=== PATIENT | female | born 1975 | race Caucasian/White ===

== ENCOUNTER 2017-04-29 05:26 | Emergency (ER) | payer SELFPAY ==
[2017-04-29] MEDS ORDERED: Ondansetron 4 MG/2 ML SDV IVPUSH ONE (05:36)
[2017-04-29] MEDS ORDERED: Diltiazem 25 MG/5 ML SDV IVPUSH ONE (05:36)
[2017-04-29] MEDS ORDERED: Sodium Chloride 0.9% 1,000 ML IV ONE (05:36)
--- NOTE | 2017-04-29 05:38 | EDM.PDOC ---
ED HPI GENERAL MEDICAL PROBLEM - General Chief Complaint: Cardiovascular Problem Stated Complaint: RAPID HEART RATE Time Seen by Provider: 04/29/17 05:37 Source of Information: Reports: Patient - History of Present Illness INITIAL COMMENTS - FREE TEXT/NARRATIVE: HISTORY AND PHYSICAL: History of present illness: [Patient with anxiety and history of aortic stenosis with valve replacement presents with sinus tachycardia rate 140 no fever vomiting chills sweats no chest pain shortness breath headache dizziness palpitation no bowel or urine symptoms at current However, shortly after arrival patient did vomit and her heart rate converted to a normal sinus rhythm and rate in the 80s Patient does have history of SVT in the past she has been on Cardizem currently Dr. Montes De Oca in [place] has her taking metoprolol extended release tablets ] Review of systems: As per history of present illness and below otherwise all systems reviewed and negative. Past medical history: As per history of present illness and as reviewed below otherwise noncontributory. Surgical history: As per history of present illness and as reviewed below otherwise noncontributory. Social history: No reported history of drug or alcohol abuse. Family history: As per history of present illness and as reviewed below otherwise noncontributory. Physical exam: HEENT: Atraumatic, normocephalic, pupils reactive, negative for conjunctival pallor or scleral icterus, mucous membranes moist, throat clear, neck supple, nontender, trachea midline. Lungs: Clear to auscultation, breath sounds equal bilaterally, chest nontender. Heart: S1S2, regular, negative for clicks, rubs, or JVD. Abdomen: Soft, nondistended, nontender. Negative for masses or hepatosplenomegaly. Negative for costovertebral tenderness. Pelvis: Stable nontender. Genitourinary: Deferred. Rectal: Deferred. Extremities: Atraumatic, negative for cords or calf pain. Neurovascular unremarkable. Neuro: Awake, alert, oriented. Cranial nerves II through XII unremarkable. Cerebellum unremarkable. Motor and sensory unremarkable throughout. Exam nonfocal. Diagnostics: [CBC CMP troponin EKG Chest 1 view ] Therapeutics: [1 L normal saline bolus Cardizem 20 mg IV was ordered however not provided as patient had one episode of vomiting which converted her to a normal sinus rhythm Protonic saline milligrams IV ] Impression: [SVT converted to normal sinus rhythm] Definitive disposition and diagnosis as appropriate pending reevaluation and review of above. chest Pain Score (Numeric/FACES): 3 - Related Data Allergies Allergy/AdvReac Type Severity Reaction Status Date / Time No Known Allergies Allergy Verified 04/29/17 05:31 Home Meds: Home Meds Furosemide [Lasix] 40 mg PO DAILY 04/29/17 [History] LORazepam 1 tab PO BID PRN 04/29/17 [History] Nitroglycerin [Nitrostat] 1 tab SL ASDIRECTED PRN 04/29/17 [History] Promethazine [Phenergan] 1 tab PO Q6HR PRN 04/29/17 [History] Warfarin [Coumadin] 10 mg PO DAILY 04/29/17 [History] ED ROS GENERAL - Review of Systems Review Of Systems: ROS reveals no pertinent complaints other than HPI. ED EXAM, GENERAL - Physical Exam Exam: See Below Course - Vital Signs Last Recorded V/S: Last Vital Signs Temp 97.7 F 04/29/17 05:26 Pulse 101 H 04/29/17 05:44 Resp 16 04/29/17 05:44 BP 147/92 H 04/29/17 05:44 Pulse Ox 97 04/29/17 05:44 - Orders/Labs/Meds Orders: Active Orders 24 hr Category Date Time Status EKG Documentation Completion [RC] STAT Care 04/29/17 05:38 Active Chest 1V Frontal [CR] Stat Exams 04/29/17 05:38 Taken UA W/MICROSCOPIC [URIN] Stat Lab 04/29/17 05:36 Ordered Sodium Chloride 0.9% [Normal Saline] 1,000 ml Med 04/29/17 05:36 Active IV STAT Medication Orders Sodium Chloride (Normal Saline) 1,000 mls @ 999 mls/hr IV STAT ONE Stop: 04/29/17 06:36 Last Admin: 04/29/17 05:45 Dose: 999 mls/hr Labs: Laboratory Tests 04/29/17 04/29/17 04/29/17 Range/Units 05:48 05:48 05:48 WBC 6.23 (4.0-11.0) K/uL RBC 3.69 L (4.30-5.90) M/uL Hgb 8.5 L (12.0-16.0) g/dL Hct 27.4 L (36.0-46.0) % MCV 74.3 L (80.0-98.0) fL MCH 23.0 L (27.0-32.0) pg MCHC 31.0 (31.0-37.0) g/dL RDW Std Deviation 45.3 (28.0-62.0) fl RDW Coeff of Rd 17 H (11.0-15.0) % Plt Count 301 (150-400) K/uL MPV 9.20 (7.40-12.00) fL Neut % (Auto) 66.3 (48.0-80.0) % Lymph % (Auto) 23.9 (16.0-40.0) % [place] % (Auto) 7.4 (0.0-15.0) % Eos % (Auto) 1.6 (0.0-7.0) % Baso % (Auto) 0.8 (0.0-1.5) % Neut # (Auto) 4.1 (1.4-5.7) K/uL Lymph # (Auto) 1.5 (0.6-2.4) K/uL [place] # (Auto) 0.5 (0.0-0.8) K/uL Eos # (Auto) 0.1 (0.0-0.7) K/uL Baso # (Auto) 0.1 (0.0-0.1) K/uL Nucleated RBC % 0.0 /100WBC Nucleated RBCs # 0 K/uL INR 4.68 Sodium 134 L (136-146) mmol/L Potassium 3.6 (3.5-5.1) mmol/L Chloride 102 (98-110) mmol/L Carbon Dioxide 21 (21-31) mmol/L BUN 13 (6.0-23.0) mg/dL Creatinine 0.8 (0.6-1.5) mg/dL Est Cr Clr Drug Dosing TNP Estimated GFR (MDRD) > 60.0 ml/min Glucose 143 H (60-110) mg/dL Calcium 9.6 (8.8-10.8) mg/dL Total Bilirubin 0.4 (0.1-1.5) mg/dL AST 18 (5-40) IU/L ALT 14 (8-54) IU/L Alkaline Phosphatase 63 (40-150) Creatine Kinase 33 (9-236) IU/L CK-MB (CK-2) 0.5 (0-6.6) ng/ml Troponin I < 0.10 (0.0-0.29) NG/ML Total Protein 8.0 (6.0-8.0) g/dL Albumin 4.2 (3.5-5.0) g/dL Globulin 3.8 H (2.0-3.5) g/dL Albumin/Globulin Ratio 1.1 L (1.3-2.8) Amylase 47 (10-90) U/L Lipase 37 (7-80) U/L Meds: Medications Generic Name Dose Route Start Last Admin Trade Name Freq PRN Reason Stop Dose Admin Sodium Chloride 1,000 mls @ 999 mls/hr 04/29/17 05:36 04/29/17 05:45 Normal Saline IV 04/29/17 06:36 999 mls/hr STAT ONE Administration Discontinued Medications Generic Name Dose Route Start Last Admin Trade Name Freq PRN Reason Stop Dose Admin Diltiazem HCl 20 mg 04/29/17 05:36 04/29/17 05:52 Diltiazem IVPUSH 04/29/17 05:37 Not Given ONETIME ONE Ondansetron HCl 8 mg 04/29/17 05:36 04/29/17 05:52 Zofran IVPUSH 04/29/17 05:37 Not Given ONETIME ONE Departure - Departure Time of Disposition: 06:33 Disposition: Home, Self-Care 01 Condition: Good Clinical Impression: SVT (supraventricular tachycardia) Referrals: Jeffy Sandra MD [Primary Care Provider] - Forms: ED Department Discharge Additional Instructions: Continue current home medications Return if symptoms persist or worsen Follow-up with primary care in 2 weeks sooner as needed The following information is given to patients seen in the emergency department who are being discharged to home. This information is to outline your options for follow-up care. We provide all patients seen in our emergency department with a follow-up referral. The need for follow-up, as well as the timing and circumstances, are variable depending upon the specifics of your emergency department visit. If you don't have a primary care physician on staff, we will provide you with a referral. We always advise you to contact your personal physician following an emergency department visit to inform them of the circumstance of the visit and for follow-up with them and/or the need for any referrals to a consulting specialist. The emergency department will also refer you to a specialist when appropriate. This referral assures that you have the opportunity for follow-up care with a specialist. All of these measure are taken in an effort to provide you with optimal care, which includes your follow-up. Under all circumstances we always encourage you to contact your private physician who remains a resource for coordinating your care. When calling for follow-up care, please make the office aware that this follow-up is from your recent emergency room visit. If for any reason you are refused follow-up, please contact the [facility] emergency department at and asked to speak to the emergency department charge nurse. - My Orders Last 24 Hours: My Active Orders 04/29/17 05:36 UA W/MICROSCOPIC [URIN] Stat Sodium Chloride 0.9% [Normal Saline] 1,000 ml IV STAT 04/29/17 05:38 EKG Documentation Completion [RC] STAT Chest 1V Frontal [CR] Stat - Assessment/Plan Last 24 Hours: My Active Orders 04/29/17 05:36 UA W/MICROSCOPIC [URIN] Stat Sodium Chloride 0.9% [Normal Saline] 1,000 ml IV STAT 04/29/17 05:38 EKG Documentation Completion [RC] STAT Chest 1V Frontal [CR] Stat
[2017-04-29 06:18] LABS: CHLORIDE,CL 102 mmol/L (98-110); SODIUM,NA 134 mmol/L (136-146)
[2017-04-29] MEDS ORDERED: Pantoprazole 40 MG Vial IVPUSH ONE ×2 (06:43)
--- NOTE | 2017-04-29 16:23 | CR ---
EXAM DATE: 04/29/17 PATIENT'S AGE: 41 Patient: TEVIN BUSBY Facility: [place], [place] Site . Site : 1975 Study: XRay Chest [id number]/25/2018 6:20:23 AM Ordering Physician: Jeny Lam Final Report: INDICATION: Tachycardia COMPARISON: none TECHNIQUE: Portable AP erect chest performed at 6:15 a.m. FINDINGS: The lungs are clear. There is no evidence pneumothorax. There is mild cardiac enlargement. Patient status post prior midline sternotomy. There is a left- sided AICD. There is no evidence pleural fluid. IMPRESSION: Cardiomegaly but no evidence of CHF. Dictated by Riaz Spence MD @ Apr 29 2017 6:27AM (Electronic Signature) Report Signed by Proxy. COLER-GOLDWATER SPECIALTY HOSPITALAshok
== END 2017-04-29 07:12 | disposition home or self-care (01) ==
LOC: MW.ED 05:26
DX: I47.1 Supraventricular tachycardia (principal); Z79.01 Long term (current) use of anticoagulants; Z79.899 Other long term (current) drug therapy
CPT/HCPCS: 36415; 71045; 80053; 81001; 82150; 82550; 82553; 83690; 84484; 85025; 85610; 93005; 96361; 96374; 99285; C9113; J7040; 99284

== ENCOUNTER 2017-08-21 14:00 | Emergency (ER) | payer SELFPAY ==
[2017-08-21] MEDS ORDERED: Sodium Chloride 0.9% 2.5 ML Syringe FLUSH PRN ×2 (15:12→16:02)
[2017-08-21] MEDS ORDERED: Aspirin 81 MG Tab.Chew PO ONE (15:12)
[2017-08-21] MEDS ORDERED: Sodium Chloride 0.9% 10 ML Syringe FLUSH PRN ×2 (15:12→16:02)
--- NOTE | 2017-08-21 15:17 | EDM.PDOC ---
ED HPI GENERAL MEDICAL PROBLEM - General Chief Complaint: Respiratory Problem Stated Complaint: SHORTNESS OF BREATH Time Seen by Provider: 08/21/17 15:13 Source of Information: Reports: Patient History Limitations: Reports: No Limitations - History of Present Illness INITIAL COMMENTS - FREE TEXT/NARRATIVE: HISTORY AND PHYSICAL: []42-year-old female with concerns over shortness of breath upon exertion History of Present Illness: []History includes MD at 37 with heart surgery 42 Recently traveled to [place] for her father's and had shortness of breath headaches in the middle the night Shortness breath is worsened since returning back to [place] She does have a nonproductive cough No fevers chills No pain with urination Primary care physician is Dr. Sandra [employer] Designer is Dr. Montes De Oca She has significant history of anemia Review of Systems: As per history of present illness and below otherwise all systems reviewed and negative. Past medical history: As per history of present illness and as reviewed below otherwise noncontributory. Surgical history: As per history of present illness and as reviewed below otherwise noncontributory. Social history: No reported history of drug or alcohol abuse. Family history: As per history of present illness and as reviewed below otherwise noncontributory. Physical exam: Alert female answering questions in full sentences skin is "breathy" when speaking . HEENT: Atraumatic, normocehpalic, pupils reactive, negative for conjunctival pallor or scleral icterus, mucous membranes moist, throat clear, neck supple, nontender, trachea midline. Lungs: Clear to auscultation, breath sounds equal bilaterally, chest non tender. Shallow breath sounds Heart: S1S2, regular, negative for clicks, rubs, or JVD. Abdomen: Soft, nondistended, nontender. Negative for masses or hepatossplenmegaly. Negative for costovertebral tenderness. Pelvis: Stable nontender. Genitourinary: Deferred. Rectal: Deferred Extremities: Atraumatic, negative for cords or calf pain. Neurovascular unremarkable. Neuro: Awake, alert, oriented. Cranial nerves II through XII unremarkable. Cerebellum unremarkable. Motor and sensory unremarkable throughout. Exam nonfocal. EKG sinus rhythm at 79 bpm Chest x-ray with no sign of pneumonia or CHF Discussed with the patient and her that her hemoglobin is 6.1 and will need blood transfusion she is in agreement with this course of action. Diagnostics: []CBC CMP EKG amylase lipase troponin BNP Therapeutics: []Aspirin O2 per nasal cannula Impression: []Acute anemia CHF Plan: []Discharged from ER [place] for outpatient therapy transfusion Lasix 20 mg to be given after transfusion Definitive disposition and diagnosis as appropriate pending reevaluation and review of above. Onset: Gradual Duration: Day(s):, Getting Worse Location: Reports: Chest Quality: Reports: Ache Severity: Moderate Improves with: Reports: None Worsens with: Reports: None Associated Symptoms: Reports: Cough - Related Data Allergies Allergy/AdvReac Type Severity Reaction Status Date / Time No Known Allergies Allergy Verified 08/21/17 14:32 Home Meds: Home Meds Furosemide [Lasix] 40 mg PO DAILY 04/29/17 [History] LORazepam 1 tab PO BID PRN 04/29/17 [History] Nitroglycerin [Nitrostat] 1 tab SL ASDIRECTED PRN 04/29/17 [History] Promethazine [Phenergan] 1 tab PO Q6HR PRN 04/29/17 [History] Warfarin [Coumadin] 10 mg PO DAILY 04/29/17 [History] Aspirin 81 mg PO DAILY 08/21/17 [History] Magnesium Oxide [Magnesium] 400 mg PO DAILY 08/21/17 [History] Metoprolol Succinate 25 mg PO BID 08/21/17 [History] Pantoprazole Sodium 1 tab PO DAILY 08/21/17 [History] Potassium Chloride 1 tab PO DAILY 08/21/17 [History] Sertraline [Zoloft] 200 mg PO DAILY 08/21/17 [History] Past Medical History - Past Health History Medical/Surgical History: Denies Medical/Surgical History Cardiovascular History: Reports: 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, Pacemaker [employer] History: Reports: Hematologic History: Reports: Anemia, Iron Deficiency - Past Surgical History Cardiovascular Surgical History: Reports: Valve Replacement, Other (See Below) Other Cardiovascular Surgeries/Procedures: Open heart sx Female Surgical History: Reports: Tubal Ligation Social & Family History - Family History Family Medical History: Noncontributory - Tobacco Use Smoking Status *Q: Never Smoker - Caffeine Use Caffeine Use: Reports: Tea Caffeine Use Comment: 2 cups daily - Recreational Drug Use Recreational Drug Use: No ED ROS GENERAL - Review of Systems Review Of Systems: ROS reveals no pertinent complaints other than HPI. ED EXAM, GENERAL - Physical Exam Exam: See Below (See dictation) Course - Vital Signs Last Recorded V/S: Last Vital Signs Temp 36.3 C 08/21/17 14:29 Pulse 82 08/21/17 14:29 Resp 18 08/21/17 14:29 BP 132/69 08/21/17 14:29 Pulse Ox 100 08/21/17 14:29 - Orders/Labs/Meds Orders: Active Orders 24 hr Category Date Time Status Cardiac Monitoring [RC] . DIRECTED Care 08/21/17 15:12 Active EKG Documentation Completion [RC] STAT Care 08/21/17 15:12 Active Chest 1V Frontal [CR] Stat Exams 08/21/17 15:12 Taken RED BLOOD CELLS LP [BBK] Stat Lab 08/21/17 16:16 Received TYPE AND SCREEN [BBK] Stat Lab 08/21/17 16:16 Received UA W/MICROSCOPIC [URIN] Stat Lab 08/21/17 16:10 Ordered Sodium Chloride 0.9% [Saline Flush] Med 08/21/17 15:12 Active 10 ml FLUSH ASDIRECTED PRN Sodium Chloride 0.9% [Saline Flush] Med 08/21/17 16:02 Active 10 ml FLUSH ASDIRECTED PRN Sodium Chloride 0.9% [Saline Flush] Med 08/21/17 15:12 Active 2.5 ml FLUSH ASDIRECTED PRN Sodium Chloride 0.9% [Saline Flush] Med 08/21/17 16:02 Active 2.5 ml FLUSH ASDIRECTED PRN Peripheral IV Insertion Adult [OM.PC] Stat Ot 08/21/17 16:02 Ordered Saline Lock Insert [OM.PC] Stat Oth 08/21/17 15:12 Ordered Transfuse Red Blood Cells [COMM] Stat Ot 08/21/17 16:00 Ordered Medication Orders Sodium Chloride (Saline Flush) 10 ml FLUSH ASDIRECTED PRN PRN Reason: Keep Vein Open Sodium Chloride (Saline Flush) 2.5 ml FLUSH ASDIRECTED PRN PRN Reason: Keep Vein Open Sodium Chloride (Saline Flush) 10 ml FLUSH ASDIRECTED PRN PRN Reason: Keep Vein Open Sodium Chloride (Saline Flush) 2.5 ml FLUSH ASDIRECTED PRN PRN Reason: Keep Vein Open Labs: Laboratory Tests 08/21/17 08/21/1718 Range/Units 15:24 15:24 15:24 WBC 5.32 (4.0-11.0) K/uL RBC 3.20 L (4.30-5.90) M/uL Hgb 6.1 L (12.0-16.0) g/dL Hct 22.1 L (36.0-46.0) % MCV 69.1 L (80.0-98.0) fL MCH 19.1 L (27.0-32.0) pg MCHC 27.6 L (31.0-37.0) g/dL RDW Std Deviation 45.9 (28.0-62.0) fl RDW Coeff of Rd 18 H (11.0-15.0) % Plt Count 289 (150-400) K/uL MPV 9.10 (7.40-12.00) fL Neut % (Auto) 70.1 (48.0-80.0) % Lymph % (Auto) 18.4 (16.0-40.0) % [place] % (Auto) 8.1 (0.0-15.0) % Eos % (Auto) 2.8 (0.0-7.0) % Baso % (Auto) 0.6 (0.0-1.5) % Neut # (Auto) 3.7 (1.4-5.7) K/uL Lymph # (Auto) 1.0 (0.6-2.4) K/uL [place] # (Auto) 0.4 (0.0-0.8) K/uL Eos # (Auto) 0.2 (0.0-0.7) K/uL Baso # (Auto) 0.0 (0.0-0.1) K/uL Nucleated RBC % 0.4 /100WBC Nucleated RBCs # 0 K/uL Sodium 139 (136-145) mmol/L Potassium 4.0 (3.5-5.1) mmol/L Chloride 104 (98-107) mmol/L Carbon Dioxide 27.0 (21.0-32.0) mmol/L BUN 15 (7.0-18.0) mg/dL Creatinine 1.0 (0.6-1.0) mg/dL Est Cr Clr Drug Dosing 67.21 mL/min Estimated GFR (MDRD) > 60.0 ml/min Glucose 109 H (74-106) mg/dL Calcium 8.8 (8.5-10.1) mg/dL Total Bilirubin 0.5 (0.2-1.0) mg/dL AST 19 (15-37) IU/L ALT 20 (14-63) IU/L Alkaline Phosphatase 59 (46-116) U/L Troponin I < 0.050 (0.000-0.056) ng/mL B-Natriuretic Peptide 174 H (<100) PG/ML Total Protein 7.4 (6.4-8.2) g/dL Albumin 3.8 (3.4-5.0) g/dL Globulin 3.6 H (2.0-3.5) g/dL Albumin/Globulin Ratio 1.1 L (1.3-2.8) Amylase 35 (25-115) U/L Lipase 116 (73-393) U/L Urine Color Urine Appearance Urine pH (5.0-8.0) Ur Specific [place] (1.001-1.035) Urine Protein (NEGATIVE) mg/dL Urine Glucose (UA) (NEGATIVE) mg/dL Urine Ketones (NEGATIVE) mg/dL Urine Occult Blood (NEGATIVE) Urine Nitrite (NEGATIVE) Urine Bilirubin (NEGATIVE) Urine Urobilinogen (<2.0) EU/dL Ur Leukocyte Esterase (NEGATIVE) Urine RBC (0-2/HPF) Urine WBC (0-5/HPF) Ur Epithelial Cells (NONE-FEW) Urine Bacteria (NEGATIVE) 08/21/17 Range/Units 16:10 WBC (4.0-11.0) K/uL RBC (4.30-5.90) M/uL Hgb (12.0-16.0) g/dL Hct (36.0-46.0) % MCV (80.0-98.0) fL MCH (27.0-32.0) pg MCHC (31.0-37.0) g/dL RDW Std Deviation (28.0-62.0) fl RDW Coeff of Rd (11.0-15.0) % Plt Count (150-400) K/uL MPV (7.40-12.00) fL Neut % (Auto) (48.0-80.0) % Lymph % (Auto) (16.0-40.0) % [place] % (Auto) (0.0-15.0) % Eos % (Auto) (0.0-7.0) % Baso % (Auto) (0.0-1.5) % Neut # (Auto) (1.4-5.7) K/uL Lymph # (Auto) (0.6-2.4) K/uL [place] # (Auto) (0.0-0.8) K/uL Eos # (Auto) (0.0-0.7) K/uL Baso # (Auto) (0.0-0.1) K/uL Nucleated RBC % /100WBC Nucleated RBCs # K/uL Sodium (136-145) mmol/L Potassium (3.5-5.1) mmol/L Chloride (98-107) mmol/L Carbon Dioxide (21.0-32.0) mmol/L BUN (7.0-18.0) mg/dL Creatinine (0.6-1.0) mg/dL Est Cr Clr Drug Dosing mL/min Estimated GFR (MDRD) ml/min Glucose (74-106) mg/dL Calcium (8.5-10.1) mg/dL Total Bilirubin (0.2-1.0) mg/dL AST (15-37) IU/L ALT (14-63) IU/L Alkaline Phosphatase (46-116) U/L Troponin I (0.000-0.056) ng/mL B-Natriuretic Peptide (<100) PG/ML Total Protein (6.4-8.2) g/dL Albumin (3.4-5.0) g/dL Globulin (2.0-3.5) g/dL Albumin/Globulin Ratio (1.3-2.8) Amylase (25-115) U/L Lipase (73-393) U/L Urine Color YELLOW Urine Appearance CLEAR Urine pH 5.0 (5.0-8.0) Ur Specific [place] 1.010 (1.001-1.035) Urine Protein NEGATIVE (NEGATIVE) mg/dL Urine Glucose (UA) NEGATIVE (NEGATIVE) mg/dL Urine Ketones NEGATIVE (NEGATIVE) mg/dL Urine Occult Blood TRACE-INTACT (NEGATIVE) Urine Nitrite NEGATIVE (NEGATIVE) Urine Bilirubin NEGATIVE (NEGATIVE) Urine Urobilinogen 0.2 (<2.0) EU/dL Ur Leukocyte Esterase NEGATIVE (NEGATIVE) Urine RBC 0-2 (0-2/HPF) Urine WBC 0-1 (0-5/HPF) Ur Epithelial Cells FEW (NONE-FEW) Urine Bacteria RARE (NEGATIVE) Meds: Medications Generic Name Dose Route Start Last Admin Trade Name Freq PRN Reason Stop Dose Admin Sodium Chloride 10 ml 08/21/17 15:12 Saline Flush FLUSH ASDIRECTED PRN Keep Vein Open Sodium Chloride 2.5 ml 08/21/17 15:12 Saline Flush FLUSH ASDIRECTED PRN Keep Vein Open Sodium Chloride 10 ml 08/21/17 16:02 Saline Flush FLUSH ASDIRECTED PRN Keep Vein Open Sodium Chloride 2.5 ml 08/21/17 16:02 Saline Flush FLUSH ASDIRECTED PRN Keep Vein Open Discontinued Medications Generic Name Dose Route Start Last Admin Trade Name Freq PRN Reason Stop Dose Admin Aspirin 324 mg 08/21/17 15:12 08/21/17 16:23 Aspirin PO 08/21/17 15:13 324 mg ONETIME ONE Administration Sodium Chloride 1,000 mls @ 999 mls/hr 08/21/17 16:08 Normal Saline IV 08/21/17 17:08 STAT ONE Departure - Departure Time of Disposition: 16:35 Disposition: Home, Self-Care 01 Condition: Good Clinical Impression: Anemia Qualifiers: Anemia type: unspecified type Qualified Code(s): D64.9 - Anemia, unspecified - Discharge Information Instructions: Blood Transfusion, Adult, [id number] Referrals: PCP,None [Primary Care Provider] - Forms: ED Department Discharge Additional Instructions: The following information is given to patients seen in the emergency department who are being discharged to home. This information is to outline your options for follow-up care. We provide all patients seen in our emergency department with a follow-up referral. The need for follow-up, as well as the timing and circumstances, are variable depending upon the specifics of your emergency department visit. If you don't have a primary care physician on staff, we will provide you with a referral. We always advise you to contact your personal physician following an emergency department visit to inform them of the circumstance of the visit and for follow-up with them and/or the need for any referrals to a consulting specialist. The emergency department will also refer you to a specialist when appropriate. This referral assures that you have the opportunity for followup care with a specialist. All of these measure are taken in an effort to provide you with optimal care, which includes your followup. Under all circumstances we always encourage you to contact your private physician who remains a resource for coordinating your care. When calling for followup care, please make the office aware that this follow-up is from your recent emergency room visit. If for any reason you are refused follow-up, please contact the [facility] emergency department at and asked to speak to the emergency department charge nurse. You're found to have severe anemia Transfusions will be given to his outpatient basis Follow-up with your primary care Dr. Sandra next week - My Orders Last 24 Hours: My Active Orders 08/21/17 15:12 Cardiac Monitoring [RC] . DIRECTED EKG Documentation Completion [RC] STAT Chest 1V Frontal [CR] Stat Sodium Chloride 0.9% [Saline Flush] 10 ml FLUSH ASDIRECTED PRN Sodium Chloride 0.9% [Saline Flush] 2.5 ml FLUSH ASDIRECTED PRN Saline Lock Insert [OM.PC] Stat 08/21/17 16:00 Transfuse Red Blood Cells [COMM] Stat 08/21/17 16:02 Sodium Chloride 0.9% [Saline Flush] 10 ml FLUSH ASDIRECTED PRN Sodium Chloride 0.9% [Saline Flush] 2.5 ml FLUSH ASDIRECTED PRN Peripheral IV Insertion Adult [OM.PC] Stat 08/21/17 16:10 UA W/MICROSCOPIC [URIN] Stat 08/21/17 16:16 RED BLOOD CELLS LP [BBK] Stat TYPE AND SCREEN [BBK] Stat - Assessment/Plan Last 24 Hours: My Active Orders 08/21/17 15:12 Cardiac Monitoring [RC] . DIRECTED EKG Documentation Completion [RC] STAT Chest 1V Frontal [CR] Stat Sodium Chloride 0.9% [Saline Flush] 10 ml FLUSH ASDIRECTED PRN Sodium Chloride 0.9% [Saline Flush] 2.5 ml FLUSH ASDIRECTED PRN Saline Lock Insert [OM.PC] Stat 08/21/17 16:00 Transfuse Red Blood Cells [COMM] Stat 08/21/17 16:02 Sodium Chloride 0.9% [Saline Flush] 10 ml FLUSH ASDIRECTED PRN Sodium Chloride 0.9% [Saline Flush] 2.5 ml FLUSH ASDIRECTED PRN Peripheral IV Insertion Adult [OM.PC] Stat 08/21/17 16:10 UA W/MICROSCOPIC [URIN] Stat 08/21/17 16:16 RED BLOOD CELLS LP [BBK] Stat TYPE AND SCREEN [BBK] Stat
[2017-08-21 15:53] LABS: CHLORIDE,CL 104 mmol/L (98-107); SODIUM,NA 139 mmol/L (136-145)
[2017-08-21] MEDS ORDERED: Sodium Chloride 0.9% 1,000 ML IV ONE (16:08)
[2017-08-21] MEDS ORDERED: Acetaminophen 325 MG Tab PO ONE (18:25)
[2017-08-21] MEDS ORDERED: diphenhydrAMINE 25 MG Cap PO ONE (18:26)
[2017-08-21] MEDS ORDERED: LORazepam 1 MG Tab PO ONE (19:48)
[2017-08-21] MEDS ORDERED: Furosemide 20 MG/2 ML VIAL IVPUSH ONE (23:00)
--- NOTE | 2017-08-23 11:28 | CR ---
EXAM DATE: 08/21/17 PATIENT'S AGE: 42 Patient: TEVIN BUSBY Facility: [place], [place] Site . Site : 1975 Study: XRay Chest [id number]/19/2018 3:54:07 PM Ordering Physician: Doctor Cazares Final Report: INDICATION: Shortness of breath with exertion. TECHNIQUE: AP portable upright chest. COMPARISON: None. FINDINGS: Sternotomy. Left-sided pacemaker/defibrillator with its lead tips in the right atrium and right ventricle. Mild cardiac enlargement without overt failure. No evidence for congestive heart failure or active pneumonia. IMPRESSION: 1. Sternotomy. Mild cardiac enlargement. No acute cardiopulmonary process identified. 2. Left-sided pacemaker/defibrillator. Dictated by Sin Wood MD @ Aug 21 2017 4:02PM (Electronic Signature) Report Signed by Proxy. TEDDY
== END 2017-08-21 16:45 | disposition home or self-care (01) ==
LOC: MW.ED 14:00
DX: I11.0 Hypertensive heart disease with heart failure (principal); I50.9 Heart failure, unspecified; D64.9 Anemia, unspecified; I25.2 Old myocardial infarction; Z79.899 Other long term (current) drug therapy
CPT/HCPCS: 36415; 36430; 71045; 80053; 81001; 82150; 83690; 83880; 84484; 85025; 85610; 86850; 86900; 86901; 86920; 86921; 86922; 99285; A9270; P9016

== ENCOUNTER 2017-09-23 16:26 | Emergency (ER) | payer SELFPAY ==
[2017-09-23] MEDS ORDERED: Ondansetron 4 MG/2 ML SDV IVPUSH ONE (16:44)
[2017-09-23] MEDS ORDERED: Sodium Chloride 0.9% 1,000 ML IV ONE (16:44)
[2017-09-23] MEDS ORDERED: Ketorolac 30 MG/ML SDV IVPUSH ONE (16:44)
--- NOTE | 2017-09-23 16:49 | EDM.PDOC ---
ED HPI GENERAL MEDICAL PROBLEM - General Chief Complaint: Gastrointestinal Problem Stated Complaint: AMB Time Seen by Provider: 09/23/17 16:28 - History of Present Illness INITIAL COMMENTS - FREE TEXT/NARRATIVE: HISTORY AND PHYSICAL: History of present illness: The patient is a 42-year-old female who has a history of hypertension defibrillator placement mitral valve replacement on chronic Coumadin therapy bilateral tubal ligation and anxiety who follows at [facility] and presents with complaints of nausea vomiting and diarrhea that started earlier this afternoon while she was eating [employer]et[employer]. Patient said she was having a normal day when this started and she's not had any fevers chills neck pain back pain urinary complaints and has no GI history. Her only abdominal surgical history is of a bilateral tubal ligation. She has had 3 bouts of diarrhea the first being mushy and the second to watery and they're not black or bloody. Initially she was vomiting only the food and she has not vomited any black or bloody fluid. She called the ambulance because when all this started she felt very anxious and prior to the nausea vomiting and diarrhea she had a frontal headache and she was worried her blood pressure was elevated so she took a sublingual nitroglycerin and the headache got worse. She also had a little bit of chest pain which is why she the nitroglycerin and she currently has no chest pain or shortness of breath. She still has a dull frontal headache and is not taking anything specifically for that. She says that her left ear has been hurting her for the last several days but she also has a bad tooth on the left lower wisdom tooth area that she has not addressed. Patient currently denies any chest pain shortness of breath abdominal pain and only has a dull frontal headache. She has no neurosensory changes or weakness in her extremities. He still feels nauseated despite receiving Reglan 5 mg IM per EMS. She says she still feels somewhat anxious and she says she has a history of getting very anxious with even minor symptoms Review of systems: As per history of present illness and below otherwise all systems reviewed and negative. Past medical history: As per history of present illness and as reviewed below otherwise noncontributory. Surgical history: As per history of present illness and as reviewed below otherwise noncontributory. Social history: No reported history of drug or alcohol abuse. Family history: As per history of present illness and as reviewed below otherwise noncontributory. Physical exam: General: Well-developed well-nourished overweight female who is nontoxic and vital signs are noted by me. HEENT: Atraumatic, normocephalic, pupils reactive, negative for conjunctival pallor or scleral icterus, mucous membranes moist, throat clear, neck supple, nontender, trachea midline. There is dental disease noted at the right lower wisdom tooth area without gum swelling in the TM on the left is within normal limits. There is no cervical adenopathy or nuchal rigidity and no scalp tenderness or sinus tenderness. Lungs: Clear to auscultation, breath sounds equal bilaterally, chest nontender. Heart: S1S2, regular rate and rhythm no overt murmurs but there is a systolic click consistent with her mechanical mitral valve. Abdomen: Soft, nondistended, nontender. Negative for masses or hepatosplenomegaly. NABS Pelvis: Stable nontender. Genitourinary: Deferred. Rectal: Deferred. Extremities: Atraumatic, negative for cords or calf pain. Neurovascular unremarkable. No pedal edema Neuro: Awake, alert, oriented. Cranial nerves II through XII unremarkable. Cerebellum unremarkable. Motor and sensory unremarkable throughout. Exam nonfocal. Diagnostics: CBC CMP amylase lipase INR--please see below Therapeutics: IV fluids Zofran Toradol Hb today of 9.5 is improved per the prior on computer We have had power outage here and delays with labs. Pt aware and has felt much better here; she has Zofran at home. Will plan for dispo home and follow up in her clinic. I will give amoxicillin for her tooth Please note that due to the power outage lab was having great difficulty running and INR and the machine will not calibrate. I told the patient that I will not hold her in the ER and she is not concerned about it because she has regular checks of it. I will cancel that test result. Impression: Nausea vomiting and diarrhea, dental disease/toothache left lower molar. Definitive disposition and diagnosis as appropriate pending reevaluation and review of above. - Related Data Allergies Allergy/AdvReac Type Severity Reaction Status Date / Time No Known Allergies Allergy Verified 08/21/17 14:32 Home Meds: Home Meds LORazepam 0.5 mg PO TID PRN 04/29/17 [History] Nitroglycerin [Nitrostat] 1 tab SL Q5H PRN 04/29/17 [History] Promethazine [Phenergan] 25 tab PO Q6HR PRN 04/29/17 [History] Warfarin [Coumadin] 10 mg PO DAILY@1400 04/29/17 [History] Aspirin 81 mg PO DAILY 08/21/17 [History] Magnesium Oxide [Magnesium] 400 mg PO DAILY 08/21/17 [History] Metoprolol Succinate 25 mg PO BID 08/21/17 [History] Pantoprazole Sodium 40 mg PO DAILY 08/21/17 [History] Potassium Chloride 20 meq PO DAILY 08/21/17 [History] Sertraline [Zoloft] 200 mg PO DAILY 08/21/17 [History] Acetaminophen with Codeine [Acetaminophen-Cod #3] 1 each PO DAILY PRN 09/23/17 [ History] Past Medical History - Past Health History Medical/Surgical History: Denies Medical/Surgical History Cardiovascular History: Reports: 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, 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 ED EXAM, GENERAL - Physical Exam Exam: See Below (See dictation) Course - Vital Signs Last Recorded V/S: Last Vital Signs Temp 37.1 C 09/23/17 16:37 Pulse 87 09/23/17 18:56 Resp 18 09/23/17 18:56 BP 139/86 09/23/17 18:56 Pulse Ox 93 L 09/23/17 18:56 - Orders/Labs/Meds Orders: Active Orders 24 hr Category Date Time Status AMYLASE [CHEM] Stat Lab 09/23/17 17:20 Received COMPREHENSIVE METABOLIC PN,CMP [CHEM] Stat Lab 09/23/17 17:20 Received INR,PT,PROTHROMBIN TIME [COAG] Stat Lab 09/23/17 17:20 Stop Req LIPASE [CHEM] Stat Lab 09/23/17 17:20 Received Labs: Laboratory Tests 09/23/17 Range/Units 17:20 WBC 6.50 (4.0-11.0) K/uL RBC 4.23 L (4.30-5.90) M/uL Hgb 9.5 L (12.0-16.0) g/dL Hct 31.2 L (36.0-46.0) % MCV 73.8 L (80.0-98.0) fL MCH 22.5 L (27.0-32.0) pg MCHC 30.4 L (31.0-37.0) g/dL RDW Std Deviation 59.6 (28.0-62.0) fl RDW Coeff of Rd 22 H (11.0-15.0) % Plt Count 305 (150-400) K/uL MPV 9.10 (7.40-12.00) fL Neut % (Auto) 84.3 H (48.0-80.0) % Lymph % (Auto) 8.9 L (16.0-40.0) % [place] % (Auto) 5.5 (0.0-15.0) % Eos % (Auto) 0.5 (0.0-7.0) % Baso % (Auto) 0.8 (0.0-1.5) % Neut # (Auto) 5.5 (1.4-5.7) K/uL Lymph # (Auto) 0.6 (0.6-2.4) K/uL [place] # (Auto) 0.4 (0.0-0.8) K/uL Eos # (Auto) 0.0 (0.0-0.7) K/uL Baso # (Auto) 0.1 (0.0-0.1) K/uL Nucleated RBC % 0.0 /100WBC Nucleated RBCs # 0 K/uL Meds: Medications Discontinued Medications Generic Name Dose Route Start Last Admin Trade Name Freq PRN Reason Stop Dose Admin Sodium Chloride 1,000 mls @ 999 mls/hr 09/23/17 16:44 09/23/17 17:39 Normal Saline IV 09/23/17 17:44 999 mls/hr STAT ONE Administration Ketorolac Tromethamine 30 mg 09/23/17 16:44 09/23/17 17:41 Toradol IVPUSH 09/23/17 16:45 30 mg ONETIME ONE Administration Ondansetron HCl 4 mg 09/23/17 16:44 09/23/17 17:43 Zofran IVPUSH 09/23/17 16:45 4 mg ONETIME ONE Administration Departure - Departure Time of Disposition: 19:26 Disposition: Home, Self-Care 01 Condition: Good Clinical Impression: Vomiting, Diarrhea, Tooth caries - Discharge Information Forms: ED Department Discharge Additional Instructions: The following information is given to patients seen in the emergency department who are being discharged to home. This information is to outline your options for follow-up care. We provide all patients seen in our emergency department with a follow-up referral. The need for follow-up, as well as the timing and circumstances, are variable depending upon the specifics of your emergency department visit. If you don't have a primary care physician on staff, we will provide you with a referral. We always advise you to contact your personal physician following an emergency department visit to inform them of the circumstance of the visit and for follow-up with them and/or the need for any referrals to a consulting specialist. The emergency department will also refer you to a specialist when appropriate. This referral assures that you have the opportunity for followup care with a specialist. All of these measure are taken in an effort to provide you with optimal care, which includes your followup. Under all circumstances we always encourage you to contact your private physician who remains a resource for coordinating your care. When calling for followup care, please make the office aware that this follow-up is from your recent emergency room visit. If for any reason you are refused follow-up, please contact the [facility] emergency department at and ask to speak to the emergency department charge nurse. [facility] Primary care- [phone] Follow up with your provider or one of ours the next few days. Use your zofran as needed and take antibiotics as directed. Please see a local dentist for definitive care of the tooth. - My Orders Last 24 Hours: My Active Orders 09/23/17 17:20 AMYLASE [CHEM] Stat COMPREHENSIVE METABOLIC PN,CMP [CHEM] Stat INR,PT,PROTHROMBIN TIME [COAG] Stat LIPASE [CHEM] Stat - Assessment/Plan Last 24 Hours: My Active Orders 09/23/17 17:20 AMYLASE [CHEM] Stat COMPREHENSIVE METABOLIC PN,CMP [CHEM] Stat INR,PT,PROTHROMBIN TIME [COAG] Stat LIPASE [CHEM] Stat
[2017-09-23 20:04] LABS: CHLORIDE,CL 103 mmol/L (98-107); SODIUM,NA 139 mmol/L (136-145)
== END 2017-09-23 19:49 | disposition home or self-care (01) ==
LOC: MW.ED 16:26
DX: R11.2 Nausea with vomiting, unspecified (principal); R19.7 Diarrhea, unspecified; K02.9 Dental caries, unspecified; I10 Essential (primary) hypertension; D50.9 Iron deficiency anemia, unspecified; Z79.899 Other long term (current) drug therapy; Z95.810 Presence of automatic (implantable) cardiac defibrillator
CPT/HCPCS: 36415; 80053; 82150; 83690; 85025; 96361; 96374; 96375; 99284; J1885; J2405; J7040

== ENCOUNTER 2017-09-24 06:25 | Emergency (ER) | payer SELFPAY ==
--- NOTE | 2017-09-24 06:37 | EDM.PDOC ---
ED HPI GENERAL MEDICAL PROBLEM - General Stated Complaint: RAPID HEART RATE Time Seen by Provider: 09/24/17 06:36 Source of Information: Reports: Patient History Limitations: Reports: No Limitations - History of Present Illness INITIAL COMMENTS - FREE TEXT/NARRATIVE: HISTORY AND PHYSICAL: History of present illness: 42-year-old female presenting to emergency department with chief complaint of rapid heart rate with past medical history of OR at age 37, hypertension, defibrillator placement, mitral valve replacement on chronic Coumadin, and anxiety. Patient was seen less than 24 hours here for nausea and vomiting in also was given a prescription for amoxicillin for presumed toothache by Dr. Hines. CBC and CMP at that time were unremarkable. Secondary to power outage INR was not able to be obtained. Patient at that time was discharged in good condition and was to use home Zofran for her nausea. She returns to the emergency department with chief complaint of continuing nausea and vomiting and rapid heart rate. States that her heart rate was in the 80s before she left and that the Zofran worked while she was here but when she went home and around midnight she noticed that her heart rate increased to 120s and was not able to get it less than 100. She does state that she has a history of anxiety that but has always been able to get the heart rate under 100 she had a similar episode 6 months ago and was able to relieve it with vagal maneuvers. Currently she still feeling nauseous and anxious. Discussing here current medical presentation with her and explaining her ekg and sinus tachycardia did seem to help with her anxiety and I did not that her heart rate decreased into the 80's Initial EKG shows sinus tachycardia 105. Review of systems: As per history of present illness and below otherwise all systems reviewed and negative. Past medical history: As per history of present illness and as reviewed below otherwise noncontributory. Surgical history: As per history of present illness and as reviewed below otherwise noncontributory. Social history: No reported history of drug or alcohol abuse. Family history: As per history of present illness and as reviewed below otherwise noncontributory. Physical exam: HEENT: Atraumatic, normocephalic, pupils reactive, negative for conjunctival pallor or scleral icterus, mucous membranes moist, throat clear, neck supple, nontender, trachea midline. Lungs: Clear to auscultation, breath sounds equal bilaterally, chest nontender. Heart: S1S2, regular, negative for clicks, rubs, or JVD. Abdomen: Soft, nondistended, nontender. Negative for masses or hepatosplenomegaly. Negative for costovertebral tenderness. Pelvis: Stable nontender. Genitourinary: Deferred. Rectal: Deferred. Extremities: Atraumatic, negative for cords or calf pain. Neurovascular unremarkable. Neuro: Awake, alert, oriented. Cranial nerves II through XII unremarkable. Cerebellum unremarkable. Motor and sensory unremarkable throughout. Exam nonfocal. Diagnostics: ] Therapeutics: IV normal saline 1 L 1, Zofran 8 mg IV 1, Phenergan 25 mg by mouth every 6 hours when necessary nausea #12 Impression: Viral gastroenteritis Nausea and vomiting Mild dehydration Plan: I discussed with the patient that most likely her volume status was a little down and this combined with her anxiety was increasing her heart rate. Secondary to her home Zofran not working but suggested we try Phenergan. She was in agreement. I did give her 1 L normal saline as well as Zofran IV which seemed to help with her symptoms. Patient did well with treatment and was discharged in good condition with instructions to follow-up with her primary care provider and return to emergency department if she had any new or worsening symptoms. headache Pain Score (Numeric/FACES): 6 - Related Data Allergies Allergy/AdvReac Type Severity Reaction Status Date / Time No Known Allergies Allergy Verified 09/24/17 06:33 Home Meds: Home Meds LORazepam 0.5 mg PO TID PRN 04/29/17 [History] Nitroglycerin [Nitrostat] 1 tab SL Q5H PRN 04/29/17 [History] Promethazine [Phenergan] 25 tab PO Q6HR PRN 04/29/17 [History] Warfarin [Coumadin] 10 mg PO DAILY@1400 04/29/17 [History] Aspirin 81 mg PO DAILY 08/21/17 [History] Magnesium Oxide [Magnesium] 400 mg PO DAILY 08/21/17 [History] Metoprolol Succinate 25 mg PO BID 08/21/17 [History] Pantoprazole Sodium 40 mg PO DAILY 08/21/17 [History] Potassium Chloride 20 meq PO DAILY 08/21/17 [History] Sertraline [Zoloft] 200 mg PO DAILY 08/21/17 [History] Acetaminophen with Codeine [Acetaminophen-Cod #3] 1 each PO DAILY PRN 09/23/17 [ History] Past Medical History - Past Health History Medical/Surgical History: Denies Medical/Surgical History Cardiovascular History: Reports: 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, 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 ED EXAM, GENERAL - Physical Exam Exam: See Below Course - Vital Signs Last Recorded V/S: Last Vital Signs Temp 97.7 F 09/24/17 06:29 Pulse 107 H 09/24/17 06:29 Resp 20 09/24/17 06:29 BP 143/95 H 09/24/17 06:29 Pulse Ox 100 09/24/17 06:29 - Orders/Labs/Meds Orders: Active Orders 24 hr Category Date Time Status Ondansetron [Zofran] Med 09/24/17 07:25 Once 8 mg IVPUSH ONETIME ONE Sodium Chloride 0.9% [Normal Saline] 1,000 ml Med 09/24/17 07:25 Active IV STAT Medication Orders Sodium Chloride (Normal Saline) 1,000 mls @ 999 mls/hr IV STAT ONE Stop: 09/24/17 08:25 Ondansetron HCl (Zofran) 8 mg IVPUSH ONETIME ONE Stop: 09/24/17 07:26 Meds: Medications Generic Name Dose Route Start Last Admin Trade Name Freq PRN Reason Stop Dose Admin Sodium Chloride 1,000 mls @ 999 mls/hr 09/24/17 07:25 Normal Saline IV 09/24/17 08:25 STAT ONE Ondansetron HCl 8 mg 09/24/17 07:25 Zofran IVPUSH 09/24/17 07:26 ONETIME ONE Departure - Departure Time of Disposition: 07:15 Disposition: Home, Self-Care 01 Condition: Good Clinical Impression: Viral gastroenteritis Nausea and vomiting Qualifiers: Vomiting type: unspecified Vomiting Intractability: non-intractable Qualified Code(s): R11.2 - Nausea with vomiting, unspecified - Discharge Information Referrals: PCP,None [Primary Care Provider] - Additional Instructions: My general discharge The following information is given to patients seen in the emergency department who are being discharged to home. This information is to outline your options for follow-up care. We provide all patients seen in our emergency department with a follow-up referral. The need for follow-up, as well as the timing and circumstances, are variable depending upon the specifics of your emergency department visit. If you don't have a primary care physician on staff, we will provide you with a referral. We always advise you to contact your personal physician following an emergency department visit to inform them of the circumstance of the visit and for follow-up with them and/or the need for any referrals to a consulting specialist. The emergency department will also refer you to a specialist when appropriate. This referral assures that you have the opportunity for follow-up care with a specialist. All of these measure are taken in an effort to provide you with optimal care, which includes your follow-up. Under all circumstances we always encourage you to contact your private physician who remains a resource for coordinating your care. When calling for follow-up care, please make the office aware that this follow-up is from your recent emergency room visit. If for any reason you are refused follow-up, please contact the [facility] Emergency Department at and asked to speak to the emergency department charge nurse. [facility] [address] [place] [id number] 1. Follow-up with primary care provider. 2. Take prescribed medications as directed. 3. Return to emergency department if any new or worsening symptoms. 4. Continue to push fluids. - My Orders Last 24 Hours: My Active Orders 09/24/17 07:25 Ondansetron [Zofran] 8 mg IVPUSH ONETIME ONE Sodium Chloride 0.9% [Normal Saline] 1,000 ml IV STAT - Assessment/Plan Last 24 Hours: My Active Orders 09/24/17 07:25 Ondansetron [Zofran] 8 mg IVPUSH ONETIME ONE Sodium Chloride 0.9% [Normal Saline] 1,000 ml IV STAT
[2017-09-24] MEDS ORDERED: Ondansetron 4 MG/2 ML SDV IVPUSH ONE ×2 (07:25→07:27)
[2017-09-24] MEDS ORDERED: Sodium Chloride 0.9% 1,000 ML IV ONE ×2 (07:25→07:27)
== END 2017-09-24 09:28 | disposition home or self-care (01) ==
LOC: MW.ED 06:25
DX: A08.4 Viral intestinal infection, unspecified (principal); I10 Essential (primary) hypertension; Z79.01 Long term (current) use of anticoagulants; Z79.899 Other long term (current) drug therapy
CPT/HCPCS: 93005; 96361; 96374; 99285; J2405; J7040

== ENCOUNTER 2017-10-14 22:56 | Emergency (ER) | payer SELFPAY ==
[2017-10-14] MEDS ORDERED: LORazepam 2 MG/ML SDV IVPUSH ONE (23:05)
--- NOTE | 2017-10-14 23:44 | EDM.PDOC ---
ED HPI GENERAL MEDICAL PROBLEM - General Chief Complaint: General Stated Complaint: CHEST PAIN Time Seen by Provider: 10/14/17 23:11 - History of Present Illness INITIAL COMMENTS - FREE TEXT/NARRATIVE: HISTORY AND PHYSICAL: History of present illness: Patient's 42-year-old female with history of coronary disease and panic attacks who presents here with concern of anxiety on arrival she has no complaints other then being anxious. There's been no chest pain shortness of breath nausea vomiting or other concerns. Review of systems: As per history of present illness and below otherwise all systems reviewed and negative. Past medical history: As per history of present illness and as reviewed below otherwise noncontributory. Surgical history: As per history of present illness and as reviewed below otherwise noncontributory. Social history: No reported history of drug or alcohol abuse. Family history: As per history of present illness and as reviewed below otherwise noncontributory. Physical exam: HEENT: Atraumatic, normocephalic, pupils reactive, negative for conjunctival pallor or scleral icterus, mucous membranes moist, throat clear, neck supple, nontender, trachea midline. Lungs: Clear to auscultation, breath sounds equal bilaterally, chest nontender. Heart: S1S2, regular, negative for clicks, rubs, or JVD. Abdomen: Soft, nondistended, nontender. Negative for masses or hepatosplenomegaly. Negative for costovertebral tenderness. Pelvis: Stable nontender. Genitourinary: Deferred. Rectal: Deferred. Extremities: Atraumatic, negative for cords or calf pain. Neurovascular unremarkable. Neuro: Awake, alert, oriented. Cranial nerves II through XII unremarkable. Cerebellum unremarkable. Motor and sensory unremarkable throughout. Exam nonfocal. Diagnostics: Deferred Therapeutics: Ativan 1 mg IV Impression: #1 acute anxiety Definitive disposition and diagnosis as appropriate pending reevaluation and review of above. - Related Data Allergies Allergy/AdvReac Type Severity Reaction Status Date / Time No Known Allergies Allergy Verified 09/24/17 06:33 Home Meds: Home Meds LORazepam 0.5 mg PO TID PRN 04/29/17 [History] Nitroglycerin [Nitrostat] 1 tab SL Q5H PRN 04/29/17 [History] Promethazine [Phenergan] 25 tab PO Q6HR PRN 04/29/17 [History] Warfarin [Coumadin] 10 mg PO DAILY@1400 04/29/17 [History] Aspirin 81 mg PO DAILY 08/21/17 [History] Magnesium Oxide [Magnesium] 400 mg PO DAILY 08/21/17 [History] Metoprolol Succinate 25 mg PO BID 08/21/17 [History] Pantoprazole Sodium 40 mg PO DAILY 08/21/17 [History] Potassium Chloride 20 meq PO DAILY 08/21/17 [History] Sertraline [Zoloft] 200 mg PO DAILY 08/21/17 [History] Acetaminophen with Codeine [Acetaminophen-Cod #3] 1 each PO DAILY PRN 09/23/17 [ History] Past Medical History - Past Health History Medical/Surgical History: Denies Medical/Surgical History Cardiovascular History: Reports: 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, Pacemaker Genitourinary History: Reports: None 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: Psychiatric History: Reports: Anxiety, Depression Hematologic History: Reports: Anemia, Iron Deficiency - Infectious Disease History Infectious Disease History: Reports: None - Past Surgical History Cardiovascular Surgical History: Reports: Valve Replacement, Other (See Below) Other Cardiovascular Surgeries/Procedures: Open heart sx Female Surgical History: Reports: Tubal Ligation Social & Family History - Family History Family Medical History: Noncontributory - Tobacco Use Smoking Status *Q: Never Smoker - Caffeine Use Caffeine Use: Reports: Tea Caffeine Use Comment: 2 cups daily ED ROS GENERAL - Review of Systems Review Of Systems: ROS reveals no pertinent complaints other than HPI. ED EXAM, GENERAL - Physical Exam Exam: See Below (See dictation) Course - Vital Signs Last Recorded V/S: Last Vital Signs Temp 36.4 C 10/14/17 23:03 Pulse 76 10/14/17 23:03 Resp 18 10/14/17 23:03 BP 142/90 H 10/14/17 23:03 Pulse Ox 99 10/14/17 23:03 - Orders/Labs/Meds Meds: Medications Discontinued Medications Generic Name Dose Route Start Last Admin Trade Name Delroy PRN Reason Stop Dose Admin Lorazepam 1 mg 10/14/17 23:05 10/14/17 23:11 Ativan IVPUSH 10/14/17 23:06 1 mg ONETIME ONE Administration Departure - Departure Time of Disposition: 23:44 Disposition: Home, Self-Care 01 Condition: Good Clinical Impression: Anxiety - Discharge Information Referrals: PCP,None [Primary Care Provider] - Additional Instructions: The following information is given to patients seen in the emergency department who are being discharged to home. This information is to outline your options for follow-up care. We provide all patients seen in our emergency department with a follow-up referral. The need for follow-up, as well as the timing and circumstances, are variable depending upon the specifics of your emergency department visit. If you don't have a primary care physician on staff, we will provide you with a referral. We always advise you to contact your personal physician following an emergency department visit to inform them of the circumstance of the visit and for follow-up with them and/or the need for any referrals to a consulting specialist. The emergency department will also refer you to a specialist when appropriate. This referral assures that you have the opportunity for followup care with a specialist. All of these measure are taken in an effort to provide you with optimal care, which includes your followup. Under all circumstances we always encourage you to contact your private physician who remains a resource for coordinating your care. When calling for followup care, please make the office aware that this follow-up is from your recent emergency room visit. If for any reason you are refused follow-up, please contact the [facility] emergency department at and asked to speak to the emergency department charge nurse. Continue current medications follow primary medical doctor return as needed as discussed
== END 2017-10-15 00:02 | disposition home or self-care (01) ==
LOC: MW.ED 22:56
DX: F41.9 Anxiety disorder, unspecified (principal); I10 Essential (primary) hypertension; D50.8 Other iron deficiency anemias; Z79.899 Other long term (current) drug therapy; Z95.0 Presence of cardiac pacemaker; Z79.82 Long term (current) use of aspirin; Z79.01 Long term (current) use of anticoagulants
CPT/HCPCS: 96374; 99284; J2060

== ENCOUNTER 2018-04-27 18:54 | Emergency (ER) | payer SELFPAY ==
--- NOTE | 2018-04-27 19:02 | EDM.PDOC ---
ED HPI GENERAL MEDICAL PROBLEM - General Chief Complaint: General Stated Complaint: FELL ON CHEST Time Seen by Provider: 04/27/18 18:55 Source of Information: Reports: Patient History Limitations: Reports: No Limitations - History of Present Illness INITIAL COMMENTS - FREE TEXT/NARRATIVE: HISTORY AND PHYSICAL: Trauma alert was called on this patient as she fell from ground level, on Coumadin. History of present illness: Patient is a 42-year-old female who presents to the emergency room with complaints of right shoulder, right anterior chest and bilateral knee pain post fall. She states she had slipped and fallen onto both of her knees and then onto her chest and right shoulder. She denies hitting her head or any loss of consciousness. Patient does take Coumadin and routinely sees Dr Flaherty. She also has a history of hypertension, [place], pacemaker. She states her blood pressure is likely to be higher she has not taken her medication this evening. She denies any fever, chills, chest pain, shortness of breath or cough. Denies any headache, change in vision, near syncope or syncope. Denies any GI or symptoms. Unsure of last Tdap. Review of systems: As per history of present illness and below otherwise all systems reviewed and negative. Past medical history: As per history of present illness and as reviewed below otherwise noncontributory. Surgical history: As per history of present illness and as reviewed below otherwise noncontributory. Social history: See social history for further information Family history: As per history of present illness and as reviewed below otherwise noncontributory. Physical exam: General: Well-developed and well-nourished 42-year-old female. Alert and oriented. Nontoxic appearing and in no acute distress. HEENT: Nontender with palpation, normocephalic, pupils equal and reactive bilaterally, negative for conjunctival pallor or scleral icterus, mucous membranes moist, TMs normal bilaterally, throat clear, neck supple, nontender, trachea midline. No drooling or trismus noted. No meningeal signs. No hot potato voice noted. Lungs: Clear to auscultation, breath sounds equal bilaterally, chest nontender. Heart: S1S2, regular rate and rhythm without overt murmur Abdomen: Soft, nondistended, nontender. Negative for masses or hepatosplenomegaly. Negative for costovertebral tenderness. Pelvis: Stable nontender. Genitourinary: Deferred. Rectal: Deferred. Skin: Abrasion left knee. Otherwise skin is intact, warm, dry. No lesions or rashes noted. Extremities: Tenderness with palpation of the right clavicle and right anterior upper chest. Range of motion with movement above 90 forward and outward. Strong radial pulse. Does have an abrasion to the left knee. Strong pedal pulses bilaterally. Denies any numbness or tingling to her distal extremities. negative for cords or calf pain. Neurovascular unremarkable. C-spine/Back: No pinpoint vertebral tenderness upon palpation. No crepitus, step -offs or obvious deformities. Patient was ambulatory into the emergency room with even and steady gait. She denies any urinary or fecal incontinence. Neuro: Awake, alert, oriented. Cranial nerves II through XII unremarkable. Cerebellum unremarkable. Motor and sensory unremarkable throughout. Exam nonfocal. Notes: Head CT is negative. X-rays shows soft tissue swelling of bilateral knees, otherwise unremarkable. We'll place patient in a sling for comfort purposes. Supportive care measures were reviewed and discussed. She voices understanding and is agreeable to plan of care. Encouraged her to follow closely with her primary care provider and/or the orthopedic provider in the next couple days. Diagnostics: PT/INR, right shoulder x-ray, 2 view chest, bilateral knees Therapeutics: Wound care, Bacitracin, Tdap, Sling Prescription: Tramadol (#15) Impression: Contusion Right shoulder injury Fall Plan: 1. Rest, ice, elevate the affected extremities that are painful as able. 2. Tylenol and/or ibuprofen as needed for pain management. Tramadol for moderate to severe pain. This medication may cause drowsiness a do not take it while driving or needing to be functioning outside of the house. 3. Please follow-up with your primary care provider and/or the orthopedic provider in the next 1-2 days. Return to the ED as needed and as discussed. Definitive disposition and diagnosis as appropriate pending reevaluation and review of above. Onset: Today Duration: Minutes: Location: Reports: Chest, Upper Extremity, Right, Lower Extremity, Left, Lower Extremity, Right Generalized Pain Score (Numeric/FACES): 9 - Related Data Allergies Allergy/AdvReac Type Severity Reaction Status Date / Time No Known Allergies Allergy Verified 04/27/18 19:02 Home Meds: Home Meds LORazepam 1 mg PO TID PRN 04/29/17 [History] Nitroglycerin [Nitrostat] 1 tab SL Q5H PRN 04/29/17 [History] Promethazine [Phenergan] 25 tab PO Q6HR PRN 04/29/17 [History] Warfarin [Coumadin] 10 mg PO ASDIRECTED 04/29/17 [History] Aspirin 81 mg PO DAILY 08/21/17 [History] Magnesium Oxide [Magnesium] 400 mg PO DAILY 08/21/17 [History] Metoprolol Succinate 25 mg PO BID 08/21/17 [History] Pantoprazole Sodium 40 mg PO DAILY 08/21/17 [History] Sertraline [Zoloft] 200 mg PO DAILY 08/21/17 [History] traMADol [Ultram] 50 mg PO Q4H PRN #15 tab 04/27/18 [Rx] Past Medical History - Past Health History Medical/Surgical History: Denies Medical/Surgical History Cardiovascular History: Reports: 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, Pacemaker Other Cardiovascular History: cardiac arrest Respiratory History: Reports: PE Gastrointestinal History: Reports: GERD Genitourinary History: Reports: None 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: Psychiatric History: Reports: Anxiety, Depression Endocrine/Metabolic History: Reports: Obesity/BMI 30+ Hematologic History: Reports: Anemia, Iron Deficiency - Infectious Disease History Infectious Disease History: Reports: None - Past Surgical History Cardiovascular Surgical History: Reports: Valve Replacement, Other (See Below) Other Cardiovascular Surgeries/Procedures: Open heart sx Female Surgical History: Reports: Tubal Ligation Social & Family History - Family History Family Medical History: Noncontributory - Caffeine Use Caffeine Use: Reports: Tea Caffeine Use Comment: 2 cups daily ED ROS GENERAL - Review of Systems Review Of Systems: ROS reveals no pertinent complaints other than HPI. ED EXAM, GENERAL - Physical Exam Exam: See Below (See dictation) Course - Vital Signs Last Recorded V/S: Last Vital Signs Temp 97 F 04/27/18 20:30 Pulse 70 04/27/18 20:30 Resp 18 04/27/18 20:30 BP 129/74 04/27/18 20:30 Pulse Ox 100 04/27/18 20:30 - Orders/Labs/Meds Orders: Active Orders 24 hr Category Date Time Status Vaccines to be Administered [RC] PER UNIT ROUTINE Care 04/27/18 19:07 Active DME for Discharge [COMM] Stat Oth 04/27/18 19:38 Ordered Labs: Laboratory Tests 04/27/18 Range/Units 19:48 INR 2.84 Meds: Medications Discontinued Medications Generic Name Dose Route Start Last Admin Trade Name Freq PRN Reason Stop Dose Admin Bacitracin 1 dose 04/27/18 19:07 04/27/18 19:39 Bacitracin Oint 1 Gm TOP 04/27/18 19:08 1 dose ONETIME ONE Administration Diphtheria/Tetanus/Acell Pertussis 0.5 ml 04/27/18 19:07 04/27/18 19:39 Adacel IM 04/27/18 19:08 0.5 ml .ONCE ONE Administration Departure - Departure Time of Disposition: 20:15 Disposition: Home, Self-Care 01 Clinical Impression: Fall Qualifiers: Encounter type: initial encounter Qualified Code(s): W19.XXXA - Unspecified fall, initial encounter Contusion Qualifiers: Encounter type: initial encounter Contusion area: knee Laterality: left Qualified Code(s): S80.02XA - Contusion of left knee, initial encounter Right shoulder injury Qualifiers: Encounter type: initial encounter Qualified Code(s): S49.91XA - Unspecified injury of right shoulder and upper arm, initial encounter - Discharge Information Prescriptions: traMADol [Ultram] 50 mg PO Q4H PRN #15 tab PRN Reason: Pain Instructions: Shoulder Pain, Contusion, [id number] Referrals: Jeffy Sandra MD [Primary Care Provider] - Forms: ED Department Discharge Additional Instructions: The following information is given to patients seen in the emergency department who are being discharged to home. This information is to outline your options for follow-up care. We provide all patients seen in our emergency department with a follow-up referral. The need for follow-up, as well as the timing and circumstances, are variable depending upon the specifics of your emergency department visit. If you don't have a primary care physician on staff, we will provide you with a referral. We always advise you to contact your personal physician following an emergency department visit to inform them of the circumstance of the visit and for follow-up with them and/or the need for any referrals to a consulting specialist. The emergency department will also refer you to a specialist when appropriate. This referral assures that you have the opportunity for follow-up care with a specialist. All of these measure are taken in an effort to provide you with optimal care, which includes your follow-up. Under all circumstances we always encourage you to contact your private physician who remains a resource for coordinating your care. When calling for follow-up care, please make the office aware that this follow-up is from your recent emergency room visit. If for any reason you are refused follow-up, please contact the [facility] Emergency Department at and asked to speak to the emergency department charge nurse. [facility] [address] [place] [id number] [address] [facility] [address] [place] [address], [address] [place] [address] 1. Rest, ice, elevate the affected extremities that are painful as able. 2. Tylenol and/or ibuprofen as needed for pain management. Tramadol for moderate to severe pain. This medication may cause drowsiness a do not take it while driving or needing to be functioning outside of the house. 3. Please follow-up with your primary care provider and/or the orthopedic provider in the next 1-2 days. Return to the ED as needed and as discussed. - My Orders Last 24 Hours: My Active Orders 04/27/18 19:07 Vaccines to be Administered [RC] PER UNIT ROUTINE 04/27/18 19:38 DME for Discharge [COMM] Stat - Assessment/Plan Last 24 Hours: My Active Orders 04/27/18 19:07 Vaccines to be Administered [RC] PER UNIT ROUTINE 04/27/18 19:38 DME for Discharge [COMM] Stat
[2018-04-27] MEDS ORDERED: Bacitracin Oint 1 GM U/D Packet TOP ONE (19:07)
[2018-04-27] MEDS ORDERED: Diphtheria,Pertussis(Acell),Tetanus Vaccine 0.5 ML Syringe IM ONE (19:07)
--- NOTE | 2018-04-27 19:58 | CT ---
INDICATION: pain, fall, on blood thinners CT HEAD WITHOUT CONTRAST TECHNIQUE: Multiple axial CT images were performed through the head without intravenous contrast administration. COMPARISON: 10/01/[address] FINDINGS: No acute intracranial hemorrhage is identified. No extra-axial collections are evident and there is no mass effect or midline shift. Ventricles are normal in size and configuration. Brain parenchyma appears normal with unremarkable perkins-white differentiation. Osseous structures are within normal limits and no fractures are seen. Included portions of the paranasal sinuses and mastoid air cells are normally aerated. IMPRESSION: Normal non-contrast head CT. NAT HUDSON MD [employer] Dictated by: Pedrito Hudson MD @ 04/27/2018 19:56:41 (Electronically Signed)
--- NOTE | 2018-04-27 20:02 | CR ---
INDICATION: Pain. TECHNIQUE: PA and lateral views of the chest. COMPARISON: 01/11/2018. FINDINGS: Prior median sternotomy and valve replacement. Stable AICD. Mild cardiomegaly. No mediastinal or hilar abnormality is seen. Normal pulmonary vasculature. Lungs are clear. No pleural fluid or pneumothorax. No acute bony abnormality. IMPRESSION: No signs of acute thoracic disease. Dictated by Alex John MD @ 04/27/2018 8:02:03 PM Dictated by: Alex John MD @ 04/27/2018 20:02:08 (Electronically Signed)
--- NOTE | 2018-04-27 20:06 | CR ---
INDICATION: Pain. Fall. TECHNIQUE: Three views of the right shoulder. COMPARISON: None. IMPRESSION: No fracture. No glenohumeral joint subluxation or dislocation. The acromioclavicular joint is normally aligned. Dictated by Alex John MD @ 04/27/2018 8:05:04 PM Dictated by: Alex John MD @ 04/27/2018 20:05:09 (Electronically Signed)
--- NOTE | 2018-04-27 20:08 | CR ---
INDICATION: Trauma. Fall. Pain. TECHNIQUE: Three views the left knee. FINDINGS: No fracture, dislocation, or erosion. Mild spurring of the medial compartment. Mild to moderate narrowing and spurring of the lateral compartment. No fracture, dislocation, erosion, or effusion. Soft tissue swelling along the medial aspect of the left knee. IMPRESSION: Soft tissue swelling. Degenerative change of the patellofemoral compartment. No fracture. Dictated by Sin Wood MD @ Apr 27 2018 8:08PM Signed by Dr. Sin Wood @ Apr 27 2018 8:08PM
--- NOTE | 2018-04-27 20:11 | CR ---
INDICATION: Trauma. Fall. Pain. TECHNIQUE: Three views of the right knee. FINDINGS: Soft tissue swelling along the medial aspect of the right knee. Degenerative narrowing of the patellofemoral compartment of a moderate degree. No fracture, dislocation, or erosion. Minor spurring of the medial compartment. IMPRESSION: Soft tissue swelling. No acute fracture or dislocation. Dictated by Sin Wood MD @ Apr 27 2018 8:08PM Signed by Dr. Sin Wood @ Apr 27 2018 8:09PM
== END 2018-04-27 20:20 | disposition home or self-care (01) ==
LOC: MW.ED 18:54
DX: S80.02XA Contusion of left knee, initial encounter (principal); S49.91XA Unspecified injury of right shoulder and upper arm, initial encounter; R07.89 Other chest pain; I10 Essential (primary) hypertension; E66.9 Obesity, unspecified; F41.9 Anxiety disorder, unspecified; F32.9 Major depressive disorder, single episode, unspecified; Z23 Encounter for immunization; Z98.51 Tubal ligation status; Z79.82 Long term (current) use of aspirin; Z79.01 Long term (current) use of anticoagulants; Z79.899 Other long term (current) drug therapy; W01.0XXA Fall on same level from slipping, tripping and stumbling without subsequent striking against object, initial encounter
CPT/HCPCS: 36415; 70450; 70450-26; 71046; 71046-26; 73030-26-RT; 73030-RT; 73562-26-LT; 73562-26-RT; 73562-LT; 73562-RT; 85610; 90471; 90715; 99284-25

== ENCOUNTER 2018-08-24 14:08 | Emergency (ER) | payer BC ==
[2018-08-24] MEDS ORDERED: Benzocaine 20% Topical Spray UD MUCMEM ONE (14:43)
[2018-08-24] MEDS ORDERED: Lidocaine 2% Viscous Solution 15 ML Cup PO ONE (14:43)
--- NOTE | 2018-08-24 15:11 | EDM.PDOC ---
ED HPI GENERAL MEDICAL PROBLEM - General Chief Complaint: ENT Problem Stated Complaint: TEETH PAIN Time Seen by Provider: 08/24/18 14:12 Source of Information: Reports: Patient History Limitations: Reports: No Limitations - History of Present Illness INITIAL COMMENTS - FREE TEXT/NARRATIVE: HISTORY AND PHYSICAL: History of present illness: Patient is a 43-year-old female who presents to the ED today for concern of tooth abscess. Patient states a few weeks ago she had seen a dentist who told her she had tooth abscess and gave her antibiotics. Patient states her symptoms went away for a few weeks but has now returned x1 day. Patient states she was supposed to follow up to get the tooth removed but has not scheduled or plan to do that. Patient states she's been able to eat and drink appropriately and denies any other symptoms at this time. Patient denies fever, chills, chest pain, shortness of breath, or cough. Denies headache, neck stiff ness, change in vision, syncope, or near syncope. Denies nausea, vomiting, abdominal pain, diarrhea, constipation, or dysuria. Has not noted any blood in urine or stool. Patient has been eating and drinking appropriately. Review of systems: As per history of present illness and below otherwise all systems reviewed and negative. Past medical history: As per history of present illness and as reviewed below otherwise noncontributory. Surgical history: As per history of present illness and as reviewed below otherwise noncontributory. Social history: See social history for further information Family history: As per history of present illness and as reviewed below otherwise noncontributory. Physical exam: General: Patient is alert, oriented, and in no acute distress. Patient sitting comfortably on exam table. HEENT: Atraumatic, normocephalic, pupils equal and reactive bilaterally, negative for conjunctival pallor or scleral icterus, mucous membranes moist, TMs normal bilaterally, throat clear, neck supple, nontender, trachea midline. No drooling or trismus noted. No meningeal signs. No hot potato voice noted. Generalized poor dentition. Tooth #17 does have surrounding edema of the gumline and does have dental caries on the tooth. Lungs: Clear to auscultation, breath sounds equal bilaterally, chest nontender. Heart: S1S2, regular rate and rhythm without overt murmur Abdomen: Soft, nondistended, nontender. Negative for masses or hepatosplenomegaly. Negative for costovertebral tenderness. Pelvis: Stable nontender. Genitourinary: Deferred. Rectal: Deferred. Skin: Intact, warm, dry. No lesions or rashes noted. Extremities: Atraumatic, negative for cords or calf pain. Neurovascular unremarkable. Neuro: Awake, alert, oriented. Cranial nerves II through XII unremarkable. Cerebellum unremarkable. Motor and sensory unremarkable throughout. Exam nonfocal. Notes: Discussed the importance for follow-up with the dentist for definitive treatment. Voices understanding and is agreeable to plan of care. Denies any further questions or concerns at this time. Diagnostics: None Therapeutics: Dental balls Prescription: Clindamycin Impression: Dental abscess Plan: 1. Please take medication as prescribed. 2. Tylenol and/or ibuprofen as directed and as needed for pain management. 3. "Tooth Balls" have been given to you; apply along the gumline every 2-3 hours as needed. Do not swallow these; external use only. 4. Follow-up with a dentist for definitive care. Return to the ED as needed and as discussed. Definitive disposition and diagnosis as appropriate pending reevaluation and review of above. Left Lower Tooth/Teeth Pain Score (Numeric/FACES): 9 - Related Data Allergies Allergy/AdvReac Type Severity Reaction Status Date / Time No Known Allergies Allergy Verified 08/24/18 14:36 Home Meds: Home Meds LORazepam 1 mg PO TID PRN 04/29/17 [History] Nitroglycerin [Nitrostat] 1 tab SL Q5H PRN 04/29/17 [History] Promethazine [Phenergan] 25 tab PO Q6HR PRN 04/29/17 [History] Warfarin [Coumadin] 10 mg PO ASDIRECTED 04/29/17 [History] Aspirin 81 mg PO DAILY 08/21/17 [History] Magnesium Oxide [Magnesium] 400 mg PO DAILY 08/21/17 [History] Metoprolol Succinate 25 mg PO BID 08/21/17 [History] Pantoprazole Sodium 40 mg PO DAILY 08/21/17 [History] Sertraline [Zoloft] 200 mg PO DAILY 08/21/17 [History] Cyanocobalamin (Vitamin B12) [Vitamin B12] 1 cap PO DAILY 08/24/18 [History] Past Medical History - Past Health History Medical/Surgical History: Denies Medical/Surgical History Cardiovascular History: Reports: 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, Pacemaker Other Cardiovascular History: cardiac arrest Respiratory History: Reports: PE Gastrointestinal History: Reports: GERD Genitourinary History: Reports: None 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: Psychiatric History: Reports: Anxiety, Depression Endocrine/Metabolic History: Reports: Obesity/BMI 30+ Hematologic History: Reports: Anemia, Iron Deficiency - Infectious Disease History Infectious Disease History: Reports: None - Past Surgical History Cardiovascular Surgical History: Reports: Valve Replacement, Other (See Below) Other Cardiovascular Surgeries/Procedures: Open heart sx Female Surgical History: Reports: Tubal Ligation Social & Family History - Family History Family Medical History: Noncontributory - Tobacco Use Smoking Status *Q: Never Smoker - Caffeine Use Caffeine Use: Reports: None Caffeine Use Comment: 2 cups daily - Recreational Drug Use Recreational Drug Use: No ED ROS ENT - Review of Systems Review Of Systems: ROS reveals no pertinent complaints other than HPI. ED EXAM, ENT - Physical Exam Exam: See Below (See dictation) Course - Vital Signs Last Recorded V/S: Last Vital Signs Temp 36.3 C 08/24/18 14:30 Pulse 86 08/24/18 14:30 Resp 18 08/24/18 14:30 BP 132/92 H 08/24/18 14:30 Pulse Ox 97 08/24/18 14:30 - Orders/Labs/Meds Meds: Medications Discontinued Medications Generic Name Dose Route Start Last Admin Trade Name Freq PRN Reason Stop Dose Admin Benzocaine 2 each 08/24/18 14:43 08/24/18 14:55 Hurricaine One 20% MUCMEM 08/24/18 14:44 2 each ONETIME ONE Administration Lidocaine HCl 15 ml 08/24/18 14:43 08/24/18 14:55 Xylocaine 2% Viscous PO 08/24/18 14:44 15 ml ONETIME ONE Administration Departure - Departure Time of Disposition: 15:11 Disposition: Home, Self-Care 01 Clinical Impression: Dental abscess - Discharge Information Instructions: Dental Abscess, [id number] Referrals: Jeffy Sandra MD [Primary Care Provider] - Forms: ED Department Discharge Additional Instructions: The following information is given to patients seen in the emergency department who are being discharged to home. This information is to outline your options for follow-up care. We provide all patients seen in our emergency department with a follow-up referral. The need for follow-up, as well as the timing and circumstances, are variable depending upon the specifics of your emergency department visit. If you don't have a primary care physician on staff, we will provide you with a referral. We always advise you to contact your personal physician following an emergency department visit to inform them of the circumstance of the visit and for follow-up with them and/or the need for any referrals to a consulting specialist. The emergency department will also refer you to a specialist when appropriate. This referral assures that you have the opportunity for follow-up care with a specialist. All of these measure are taken in an effort to provide you with optimal care, which includes your follow-up. Under all circumstances we always encourage you to contact your private physician who remains a resource for coordinating your care. When calling for follow-up care, please make the office aware that this follow-up is from your recent emergency room visit. If for any reason you are refused follow-up, please contact the [facility] Emergency Department at and asked to speak to the emergency department charge nurse. [facility] [address] [place] [address] [place] [address] 1. Please take medication as prescribed. 2. Tylenol and/or ibuprofen as directed and as needed for pain management. 3. "Tooth Balls" have been given to you; apply along the gumline every 2-3 hours as needed. Do not swallow these; external use only. 4. Follow-up with a dentist for definitive care. Return to the ED as needed and as discussed.
== END 2018-08-24 15:27 | disposition home or self-care (01) ==
LOC: MW.ED 14:08
DX: K04.7 Periapical abscess without sinus (principal); I10 Essential (primary) hypertension; F41.9 Anxiety disorder, unspecified; E66.9 Obesity, unspecified; Z79.82 Long term (current) use of aspirin; Z79.01 Long term (current) use of anticoagulants; Z79.899 Other long term (current) drug therapy; Z95.0 Presence of cardiac pacemaker; Z86.2 Personal history of diseases of the blood and blood-forming organs and certain disorders involving the immune mechanism; Z98.51 Tubal ligation status
CPT/HCPCS: 99283; A9270

== ENCOUNTER 2018-09-22 23:05 | Emergency (ER) | payer BC ==
[2018-09-22] MEDS ORDERED: Ondansetron 4 MG Tab.DIS PO ONE (23:16)
--- NOTE | 2018-09-22 23:16 | EDM.PDOC ---
ED HPI GENERAL MEDICAL PROBLEM - General Chief Complaint: ENT Problem Stated Complaint: ORAL ISSUES Time Seen by Provider: 09/22/18 23:14 - History of Present Illness INITIAL COMMENTS - FREE TEXT/NARRATIVE: HISTORY AND PHYSICAL: History of present illness: Patient's 43-year-old female with mitral valve replacement and is on Coumadin who had a dental extraction comes in with bleeding from her extraction site of the left lower molar. This has been controlled with direct pressure although she is having trouble with the gauze in losing of blood she feels she may have swallowed some blood cause some nausea related to this. She did contact her oral surgeon and is going to be able see him tomorrow. Review of systems: As per history of present illness and below otherwise all systems reviewed and negative. Past medical history: As per history of present illness and as reviewed below otherwise noncontributory. Surgical history: As per history of present illness and as reviewed below otherwise noncontributory. Social history: No reported history of drug or alcohol abuse. Family history: As per history of present illness and as reviewed below otherwise noncontributory. Physical exam: HEENT: Atraumatic, normocephalic, pupils reactive, negative for conjunctival pallor or scleral icterus, mucous membranes moist, throat clear, neck supple, nontender, trachea midline. Patient is generally poor dentition she does have some oozing noted from the extraction site of the left lower molar is again controlled with direct pressure Lungs: Clear to auscultation, breath sounds equal bilaterally, chest nontender. Heart: S1S2, regular, negative for clicks, rubs, or JVD. Abdomen: Soft, nondistended, nontender. Negative for masses or hepatosplenomegaly. Negative for costovertebral tenderness. Pelvis: Stable nontender. Genitourinary: Deferred. Rectal: Deferred. Extremities: Atraumatic, negative for cords or calf pain. Neurovascular unremarkable. Neuro: Awake, alert, oriented. Cranial nerves II through XII unremarkable. Cerebellum unremarkable. Motor and sensory unremarkable throughout. Exam nonfocal. Diagnostics: CBC PT/INR Therapeutics: Zofran 4 mg Impression: #1 recent dental extraction with postextraction bleeding #2 coagulopathy secondary to Coumadin Definitive disposition and diagnosis as appropriate pending reevaluation and review of above. - Related Data Allergies Allergy/AdvReac Type Severity Reaction Status Date / Time No Known Allergies Allergy Verified 09/22/18 23:12 Home Meds: Home Meds LORazepam 1 mg PO TID PRN 04/29/17 [History] Nitroglycerin [Nitrostat] 1 tab SL Q5H PRN 04/29/17 [History] Promethazine [Phenergan] 25 tab PO Q6HR PRN 04/29/17 [History] Warfarin [Coumadin] 10 mg PO ASDIRECTED 04/29/17 [History] Aspirin 81 mg PO DAILY 08/21/17 [History] Magnesium Oxide [Magnesium] 400 mg PO DAILY 08/21/17 [History] Metoprolol Succinate 25 mg PO BID 08/21/17 [History] Pantoprazole Sodium 40 mg PO DAILY 08/21/17 [History] Sertraline [Zoloft] 200 mg PO DAILY 08/21/17 [History] Cyanocobalamin (Vitamin B12) [Vitamin B12] 1 cap PO DAILY 08/24/18 [History] Past Medical History - Past Health History Medical/Surgical History: Denies Medical/Surgical History HEENT History: Reports: None Cardiovascular History: Reports: 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, Pacemaker Other Cardiovascular History: cardiac arrest Respiratory History: Reports: PE Gastrointestinal History: Reports: GERD Genitourinary History: Reports: None 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: Musculoskeletal History: Reports: None Neurological History: Reports: None Psychiatric History: Reports: Anxiety, Depression Endocrine/Metabolic History: Reports: Obesity/BMI 30+ Hematologic History: Reports: Anemia, Iron Deficiency Immunologic History: Reports: None Oncologic (Cancer) History: Reports: None Dermatologic History: Reports: None - Infectious Disease History Infectious Disease History: Reports: None - Past Surgical History Head Surgeries/Procedures: Reports: None HEENT Surgical History: Reports: Oral Surgery Cardiovascular Surgical History: Reports: Valve Replacement, Other (See Below) Other Cardiovascular Surgeries/Procedures: Open heart sx Respiratory Surgical History: Reports: None GI Surgical History: Reports: None Female Surgical History: Reports: Tubal Ligation Endocrine Surgical History: Reports: None Neurological Surgical History: Reports: None Musculoskeletal Surgical History: Reports: None Oncologic Surgical History: Reports: None Dermatological Surgical History: Reports: None Social & Family History - Family History Family Medical History: Noncontributory - Tobacco Use Smoking Status *Q: Never Smoker Second Hand Smoke Exposure: No - Caffeine Use Caffeine Use: Reports: None Caffeine Use Comment: 2 cups daily - Recreational Drug Use Recreational Drug Use: No ED ROS GENERAL - Review of Systems Review Of Systems: ROS reveals no pertinent complaints other than HPI. ED EXAM, GENERAL - Physical Exam Exam: See Below (See dictation) Course - Vital Signs Last Recorded V/S: Last Vital Signs Temp 36.2 C 09/22/18 23:10 Pulse 103 H 09/22/18 23:10 Resp 18 09/22/18 23:10 BP 151/91 H 09/22/18 23:10 Pulse Ox 94 L 09/22/18 23:10 - Orders/Labs/Meds Labs: Laboratory Tests 09/22/18 09/22/18 Range/Units 23:20 23:20 WBC 7.63 (4.0-11.0) K/uL RBC 3.79 L (4.30-5.90) M/uL Hgb 10.1 L (12.0-16.0) g/dL Hct 32.6 L (36.0-46.0) % MCV 86.0 (80.0-98.0) fL MCH 26.6 L (27.0-32.0) pg MCHC 31.0 (31.0-37.0) g/dL RDW Std Deviation 46.4 (28.0-62.0) fl RDW Coeff of Rd 15 (11.0-15.0) % Plt Count 260 (150-400) K/uL MPV 9.70 (7.40-12.00) fL Neut % (Auto) 79.0 (48.0-80.0) % Lymph % (Auto) 12.7 L (16.0-40.0) % Petroleum % (Auto) 6.6 (0.0-15.0) % Eos % (Auto) 1.4 (0.0-7.0) % Baso % (Auto) 0.3 (0.0-1.5) % Neut # (Auto) 6.0 H (1.4-5.7) K/uL Lymph # (Auto) 1.0 (0.6-2.4) K/uL Petroleum # (Auto) 0.5 (0.0-0.8) K/uL Eos # (Auto) 0.1 (0.0-0.7) K/uL Baso # (Auto) 0.0 (0.0-0.1) K/uL Nucleated RBC % 0.0 /100WBC Nucleated RBCs # 0 K/uL INR 1.11 Meds: Medications Discontinued Medications Generic Name Dose Route Start Last Admin Trade Name Delroy PRN Reason Stop Dose Admin Ondansetron HCl 4 mg 09/22/18 23:16 09/22/18 23:23 Zofran Odt PO 09/22/18 23:17 4 mg ONETIME ONE Administration Departure - Departure Time of Disposition: 23:56 Disposition: Home, Self-Care 01 Condition: Good Clinical Impression: Encounter for medical screening examination, History of oral surgery - Discharge Information Referrals: Jeffy Sandra MD [Primary Care Provider] - Forms: ED Department Discharge Additional Instructions: The following information is given to patients seen in the emergency department who are being discharged to home. This information is to outline your options for follow-up care. We provide all patients seen in our emergency department with a follow-up referral. The need for follow-up, as well as the timing and circumstances, are variable depending upon the specifics of your emergency department visit. If you don't have a primary care physician on staff, we will provide you with a referral. We always advise you to contact your personal physician following an emergency department visit to inform them of the circumstance of the visit and for follow-up with them and/or the need for any referrals to a consulting specialist. The emergency department will also refer you to a specialist when appropriate. This referral assures that you have the opportunity for followup care with a specialist. All of these measure are taken in an effort to provide you with optimal care, which includes your followup. Under all circumstances we always encourage you to contact your private physician who remains a resource for coordinating your care. When calling for followup care, please make the office aware that this follow-up is from your recent emergency room visit. If for any reason you are refused follow-up, please contact the [facility] emergency department at and asked to speak to the emergency department charge nurse. Continue gauze and direct pressure as discussed medication as directed follow- up oral surgery and private medical doctor in a.m. return as needed as discussed
== END 2018-09-23 | disposition home or self-care (01) ==
LOC: MW.ED 23:05
DX: K91.840 Postprocedural hemorrhage of a digestive system organ or structure following a digestive system procedure (principal); D68.9 Coagulation defect, unspecified; I10 Essential (primary) hypertension; E66.9 Obesity, unspecified; F41.9 Anxiety disorder, unspecified; F32.9 Major depressive disorder, single episode, unspecified; K21.9 Gastro-esophageal reflux disease without esophagitis; K08.409 Partial loss of teeth, unspecified cause, unspecified class; Z98.51 Tubal ligation status; Z95.0 Presence of cardiac pacemaker; Z79.82 Long term (current) use of aspirin; Z79.01 Long term (current) use of anticoagulants; Z79.899 Other long term (current) drug therapy
CPT/HCPCS: 36415; 85025; 85610; 99283; A9270

== ENCOUNTER 2018-12-12 16:07 | Emergency (ER) | payer SELFPAY ==
--- NOTE | 2018-12-12 16:08 | EDM.PDOC ---
ED HPI GENERAL MEDICAL PROBLEM - General Stated Complaint: PAIN WHILE TAKING DEEP BREATH Time Seen by Provider: 12/12/18 16:07 Source of Information: Reports: Patient History Limitations: Reports: No Limitations - History of Present Illness INITIAL COMMENTS - FREE TEXT/NARRATIVE: HISTORY AND PHYSICAL: History of present illness: Patient is a 43-year-old female who presents to the emergency room with complaints of inspiratory chest pain. She states over the past one week she has had a generalized cold and some diarrhea which was concerning to her. She has been taking Mucinex [id number]. Attributes her diarrhea to her Lasix. Today she took in a deep breath and had sudden sharp pain to her mid sternum. She states that the pain is reproducible when leaning back or taking in a deep breath. Patient denies any fever, chills, headache, change in vision, syncope or near syncope. Denies any back pain, shortness of breath or cough. Denies any abdominal pain, nausea, vomiting, diarrhea, constipation or dysuria. Has not noted any blood in urine or stool. Patient has been eating and drinking appropriately. Patient does have a past medical history of hypertension, cardiac arrest, valve replacement, pacemaker, GERD anxiety. Patient does take Coumadin, does have INR checked monthly. Review of systems: As per history of present illness and below otherwise all systems reviewed and negative. Past medical history: As per history of present illness and as reviewed below otherwise noncontributory. Surgical history: As per history of present illness and as reviewed below otherwise noncontributory. Social history: See social history for further information Family history: As per history of present illness and as reviewed below otherwise noncontributory. Physical exam: General: Well-developed and well-nourished 43-year-old female. Alert and oriented. Nontoxic appearing and in no acute distress. HEENT: Atraumatic, normocephalic, pupils equal and reactive bilaterally, negative for conjunctival pallor or scleral icterus, mucous membranes moist, TMs normal bilaterally, throat clear, neck supple, nontender, trachea midline. No drooling or trismus noted. No meningeal signs. No hot potato voice noted. Lungs: Clear to auscultation, breath sounds equal bilaterally, chest nontender. Heart: S1S2, regular rate and rhythm without overt murmur Abdomen: Soft, nondistended, nontender. Negative for masses or hepatosplenomegaly. Negative for costovertebral tenderness. Pelvis: Stable nontender. Skin: Intact, warm, dry. No lesions or rashes noted. Extremities: Atraumatic, moves all extremities per self without difficulty or deficits, negative for cords or calf pain. Neurovascular unremarkable. Neuro: Awake, alert, oriented. Cranial nerves II through XII unremarkable. Cerebellum unremarkable. Motor and sensory unremarkable throughout. Exam nonfocal. Notes: Patient has been pain-free while being here in the emergency room. Currently asymptomatic. Vital signs are stable and have been reviewed by me. Reviewing the patient's previous hemoglobin and hematocrit, patient does appear chronically anemic. Patient states that she is chronically anemic. Lab work is otherwise unremarkable. Chest x-ray shows no acute findings. I did offer her admission which she declines. She is aware of the risks versus benefits of admission versus discharge. She states if anything worsens or new symptoms develop she will return to the emergency room. Supportive care measures were reviewed and discussed. Voices understanding and is agreeable to plan of care. Denies any further questions or concerns at this time. Diagnostics: CBC, CMP, INR, CXR, Troponin, EKG Therapeutics: Saline Lock Prescription: None Impression: Anemia Nonspecific chest pain Plan: 1. Continue taking all your home medications as prescribed. 2. As we discussed if your symptoms should return or worsen please return to the emergency room. 3. Please follow-up with your primary care provider as we discussed. Definitive disposition and diagnosis as appropriate pending reevaluation and review of above. Middle Chest Pain Score (Numeric/FACES): 7 - Related Data Allergies Allergy/AdvReac Type Severity Reaction Status Date / Time No Known Allergies Allergy Verified 12/12/18 16:11 Home Meds: Home Meds LORazepam 1 mg PO TID PRN 04/29/17 [History] Nitroglycerin [Nitrostat] 1 tab SL Q5H PRN 04/29/17 [History] Promethazine [Phenergan] 25 tab PO Q6HR PRN 04/29/17 [History] Warfarin [Coumadin] 10 mg PO ASDIRECTED 04/29/17 [History] Aspirin 81 mg PO DAILY 08/21/17 [History] Magnesium Oxide [Magnesium] 400 mg PO DAILY 08/21/17 [History] Metoprolol Succinate 25 mg PO BID 08/21/17 [History] Pantoprazole Sodium 40 mg PO DAILY 08/21/17 [History] Sertraline [Zoloft] 200 mg PO DAILY 08/21/17 [History] Cyanocobalamin (Vitamin B12) [Vitamin B12] 1 cap PO DAILY 08/24/18 [History] Past Medical History - Past Health History Medical/Surgical History: Denies Medical/Surgical History HEENT History: Reports: None Cardiovascular History: Reports: 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, Pacemaker Other Cardiovascular History: cardiac arrest Respiratory History: Reports: PE Gastrointestinal History: Reports: GERD Genitourinary History: Reports: None THREAD GRINDER TOOL History: Reports: Musculoskeletal History: Reports: None Neurological History: Reports: None Psychiatric History: Reports: Anxiety, Depression Endocrine/Metabolic History: Reports: Obesity/BMI 30+ Hematologic History: Reports: Anemia, Iron Deficiency Immunologic History: Reports: None Oncologic (Cancer) History: Reports: None Dermatologic History: Reports: None - Infectious Disease History Infectious Disease History: Reports: None - Past Surgical History Head Surgeries/Procedures: Reports: None HEENT Surgical History: Reports: Oral Surgery Cardiovascular Surgical History: Reports: Valve Replacement, Other (See Below) Other Cardiovascular Surgeries/Procedures: Open heart sx Respiratory Surgical History: Reports: None GI Surgical History: Reports: None Female Surgical History: Reports: Tubal Ligation Endocrine Surgical History: Reports: None Neurological Surgical History: Reports: None Musculoskeletal Surgical History: Reports: None Oncologic Surgical History: Reports: None Dermatological Surgical History: Reports: None Social & Family History - Family History Family Medical History: Noncontributory - Caffeine Use Caffeine Use: Reports: None Caffeine Use Comment: 2 cups daily ED ROS GENERAL - Review of Systems Review Of Systems: ROS reveals no pertinent complaints other than HPI. ED EXAM, GENERAL - Physical Exam Exam: See Below (See dictation) Course - Vital Signs Last Recorded V/S: Last Vital Signs Temp 96.6 F 12/12/18 16:12 Pulse 87 12/12/18 16:12 Resp 18 12/12/18 16:12 BP 160/78 H 12/12/18 16:12 Pulse Ox 100 12/12/18 16:12 - Orders/Labs/Meds Orders: Active Orders 24 hr Category Date Time Status EKG Documentation Completion [RC] STAT Care 12/12/18 16:14 Active UA W/NATHALIA RFLX IF INDICATED [URIN] Stat Lab 12/12/18 17:07 Ordered Sodium Chloride 0.9% [Normal Saline] 1,000 ml Med 12/12/18 16:21 Active IV STAT Sodium Chloride 0.9% [Saline Flush] Med 12/12/18 16:14 Active 10 ml FLUSH ASDIRECTED PRN Sodium Chloride 0.9% [Saline Flush] Med 12/12/18 16:14 Active 2.5 ml FLUSH ASDIRECTED PRN Saline Lock Insert [OM.PC] Stat Oth 12/12/18 16:14 Ordered Medication Orders Sodium Chloride (Normal Saline) 1,000 mls @ 125 mls/hr IV STAT ONE Stop: 12/13/18 00:20 Last Admin: 12/12/18 16:30 Dose: 125 mls/hr Sodium Chloride (Saline Flush) 10 ml FLUSH ASDIRECTED PRN PRN Reason: Keep Vein Open Last Admin: 12/12/18 16:31 Dose: 10 ml Sodium Chloride (Saline Flush) 2.5 ml FLUSH ASDIRECTED PRN PRN Reason: Keep Vein Open Last Admin: 12/12/18 16:31 Dose: 2.5 ml Labs: Laboratory Tests 12/12/18 12/12/18 12/12/18 Range/Units 16:41 16:41 16:41 WBC 5.64 (4.0-11.0) K/uL RBC 4.06 L (4.30-5.90) M/uL Hgb 9.8 L (12.0-16.0) g/dL Hct 32.3 L (36.0-46.0) % MCV 79.6 L (80.0-98.0) fL MCH 24.1 L (27.0-32.0) pg MCHC 30.3 L (31.0-37.0) g/dL RDW Std Deviation 49.5 (28.0-62.0) fl RDW Coeff of Rd 17 H (11.0-15.0) % Plt Count 273 (150-400) K/uL MPV 9.80 (7.40-12.00) fL Neut % (Auto) 66.2 (48.0-80.0) % Lymph % (Auto) 21.8 (16.0-40.0) % Kleberg % (Auto) 9.2 (0.0-15.0) % Eos % (Auto) 2.1 (0.0-7.0) % Baso % (Auto) 0.7 (0.0-1.5) % Neut # (Auto) 3.7 (1.4-5.7) K/uL Lymph # (Auto) 1.2 (0.6-2.4) K/uL Kleberg # (Auto) 0.5 (0.0-0.8) K/uL Eos # (Auto) 0.1 (0.0-0.7) K/uL Baso # (Auto) 0.0 (0.0-0.1) K/uL Nucleated RBC % 0.0 /100WBC Nucleated RBCs # 0 K/uL INR 3.46 Sodium 139 (136-145) mmol/L Potassium 4.7 (3.5-5.1) mmol/L Chloride 102 (98-107) mmol/L Carbon Dioxide 27.4 (21.0-32.0) mmol/L BUN 13 (7.0-18.0) mg/dL Creatinine 0.8 (0.6-1.0) mg/dL Est Cr Clr Drug Dosing 86.36 mL/min Estimated GFR (MDRD) > 60.0 ml/min Glucose 136 H (74-106) mg/dL Calcium 9.3 (8.5-10.1) mg/dL Total Bilirubin 0.5 (0.2-1.0) mg/dL AST 17 (15-37) IU/L ALT 25 (14-63) IU/L Alkaline Phosphatase 67 (46-116) U/L Troponin I < 0.050 (0.000-0.056) ng/mL Total Protein 7.5 (6.4-8.2) g/dL Albumin 3.8 (3.4-5.0) g/dL Globulin 3.7 (2.6-4.0) g/dL Albumin/Globulin Ratio 1.0 (0.9-1.6) Meds: Medications Generic Name Dose Route Start Last Admin Trade Name Freq PRN Reason Stop Dose Admin Sodium Chloride 1,000 mls @ 125 mls/hr 12/12/18 16:21 12/12/18 16:30 Normal Saline IV 12/13/18 00:20 125 mls/hr STAT ONE Administration Sodium Chloride 10 ml 12/12/18 16:14 12/12/18 16:31 Saline Flush FLUSH 10 ml ASDIRECTED PRN Administration Keep Vein Open Sodium Chloride 2.5 ml 12/12/18 16:14 12/12/18 16:31 Saline Flush FLUSH 2.5 ml ASDIRECTED PRN Administration Keep Vein Open Departure - Departure Time of Disposition: 17:34 Disposition: Home, Self-Care 01 Clinical Impression: Nonspecific chest pain Anemia Qualifiers: Anemia type: unspecified type Qualified Code(s): D64.9 - Anemia, unspecified - Discharge Information Instructions: Nonspecific Chest Pain, [id number] Referrals: PCP,Unknown [Primary Care Provider] - Additional Instructions: The following information is given to patients seen in the emergency department who are being discharged to home. This information is to outline your options for follow-up care. We provide all patients seen in our emergency department with a follow-up referral. The need for follow-up, as well as the timing and circumstances, are variable depending upon the specifics of your emergency department visit. If you don't have a primary care physician on staff, we will provide you with a referral. We always advise you to contact your personal physician following an emergency department visit to inform them of the circumstance of the visit and for follow-up with them and/or the need for any referrals to a consulting specialist. The emergency department will also refer you to a specialist when appropriate. This referral assures that you have the opportunity for follow-up care with a specialist. All of these measure are taken in an effort to provide you with optimal care, which includes your follow-up. Under all circumstances we always encourage you to contact your private physician who remains a resource for coordinating your care. When calling for follow-up care, please make the office aware that this follow-up is from your recent emergency room visit. If for any reason you are refused follow-up, please contact the [facility] Emergency Department at and asked to speak to the emergency department charge nurse. [facility] Primary Care [address] [place] [id number] [address] [place] [address] 1. Continue taking all your home medications as prescribed. 2. As we discussed if your symptoms should return or worsen please return to the emergency room. 3. Please follow-up with your primary care provider as we discussed. - My Orders Last 24 Hours: My Active Orders 12/12/18 16:14 EKG Documentation Completion [RC] STAT Sodium Chloride 0.9% [Saline Flush] 10 ml FLUSH ASDIRECTED PRN Sodium Chloride 0.9% [Saline Flush] 2.5 ml FLUSH ASDIRECTED PRN Saline Lock Insert [OM.PC] Stat 12/12/18 16:21 Sodium Chloride 0.9% [Normal Saline] 1,000 ml IV STAT 12/12/18 17:07 UA W/NATHALIA RFLX IF INDICATED [URIN] Stat - Assessment/Plan Last 24 Hours: My Active Orders 12/12/18 16:14 EKG Documentation Completion [RC] STAT Sodium Chloride 0.9% [Saline Flush] 10 ml FLUSH ASDIRECTED PRN Sodium Chloride 0.9% [Saline Flush] 2.5 ml FLUSH ASDIRECTED PRN Saline Lock Insert [OM.PC] Stat 12/12/18 16:21 Sodium Chloride 0.9% [Normal Saline] 1,000 ml IV STAT 12/12/18 17:07 UA W/NATHALIA RFLX IF INDICATED [URIN] Stat
[2018-12-12] MEDS ORDERED: Sodium Chloride 0.9% 10 ML Syringe FLUSH PRN (16:14)
[2018-12-12] MEDS ORDERED: Sodium Chloride 0.9% 2.5 ML Syringe FLUSH PRN (16:14)
[2018-12-12] MEDS ORDERED: Sodium Chloride 0.9% 1,000 ML IV ONE (16:21)
[2018-12-12 17:24] LABS: BLOOD UREA NITROGEN,BUN 13 mg/dL (7.0-18.0); CARBON DIOXIDE,CO2 27.4 mmol/L (21.0-32.0); CHLORIDE,CL 102 mmol/L (98-107); GLUCOSE RANDOM 136 mg/dL (74-106); POTASSIUM,K 4.7 mmol/L (3.5-5.1); SODIUM,NA 139 mmol/L (136-145)
--- NOTE | 2018-12-12 17:31 | CR ---
INDICATION: Chest pain TECHNIQUE: Chest 2 views. COMPARISON: 04/27/2018 FINDINGS: Cardiovascular and mediastinum: Heart size and vasculature are normal in caliber and appearance. Mediastinum is within normal limits. Sternotomy wires, prosthetic heart valve left-sided transvenous pacer device noted. Lungs and pleural spaces: Lungs are clear. No sign of infiltrate or mass. No sign of pleural effusion. No pneumothorax. Bones and soft tissues: No significant findings. IMPRESSION: Unremarkable chest. Dictated by Anjel Pérez MD @ 12/12/2018 5:29:39 PM Dictated by: Anjel Pérez MD @ 12/12/2018 17:29:41 (Electronically Signed)
== END 2018-12-12 17:51 | disposition home or self-care (01) ==
LOC: MW.ED 16:07
DX: R07.9 Chest pain, unspecified (principal); D64.9 Anemia, unspecified; I10 Essential (primary) hypertension; K21.9 Gastro-esophageal reflux disease without esophagitis; F41.9 Anxiety disorder, unspecified; F32.9 Major depressive disorder, single episode, unspecified; Z79.01 Long term (current) use of anticoagulants; Z79.899 Other long term (current) drug therapy; Z79.82 Long term (current) use of aspirin; Z86.711 Personal history of pulmonary embolism
CPT/HCPCS: 71046; 80053; 81001; 84484; 85025; 85610; 93005; 96360; 99285; J7040